=== PATIENT | female | born 1975 | race Caucasian/White ===

== ENCOUNTER → 2016-06-20 | Outpatient (CLI) | payer OTHER ==
[~2016-06-20] MED LIST: AMX500CIP PO; CETI10TA17 PO; CITA10TA70 PO; FLT05NA16 NS; HYDR-3816 PO; METR500T PO; NAPR-243 PO; OMEP-10 PO; ONDA4TAB11 PO; PANT40TA PO; PRD20T PO; PROM12.59 PO; SCR1T1 PO
--- OUTSIDE RECORDS SUMMARY | 2016-06-20 11:15 | XMS REPORT | Continuity of Care Document ---
Author Author [facility] Organization [facility] Address Unknown Phone Unavailable Care Team Providers Care Log Processor Operator Name Role Phone NO, LOCAL PHYSICIAN PCP Unavailable Insurance Providers Payer Name Policy Number Subscriber Name Relationship [facility] [id number] Micaela Walker 18 Self / Same As Patient Advance Directives Directive Response Recorded Date/Time Advance Directives No 09/20/14 9:48am Resuscitation Status Full Code 09/20/14 9:48am Problems Medical Problems Problem Onset Date Status Epigastric abdominal pain Unknown Active Medications Medication Dose Route Sig Days/Qty Instructions Order Date Discontinued Date Status Cetirizine HCl (Zyrtec) 10 Mg PO DAILY 11/27/13 09/20/14 Discontinued Fluticasone Propionate 1 [place] NS DIRECTED 1 Qty 11/27/13 09/20/14 Discontinued Citalopram Hydrobromide 1 Each PO DAILY 11/27/13 09/20/14 Discontinued Prednisone 20 Mg PO TWICE A DAY 10 Qty 11/27/13 09/20/14 Discontinued Naproxen 1 Each PO TWICE A DAY PRN PAIN 20 Qty FOR PAIN 11/27/13 Discontinued Promethazine Hcl 12.5 Mg PO EVERY 6 HOURS PRN NAUSEA 09/20/14 Active Omeprazole 20 Mg PO DAILY 09/20/14 Active Metronidazole 1 Each PO T 09/20/14 Active Amoxicillin 1,000 Mg PO TWICE A DAY 09/20/14 Active Hydrocodone Bit/Acetaminophen 1 Tab PO EVERY 6 HOURS PRN PAIN 10 Qty Active Ondansetron 4 Mg PO EVERY 6 HOURS PRN NAUSEA/VOMITING 10 Qty 09/20/14 Active Sucralfate 1 Gm PO BEFORE MEALS AND AT BEDTIME 60 Qty 09/20/14 Active Social History Social History Problem Response Recorded Date/Time Alcohol Use Denies Use 09/20/2014 9:48am Recreational Drug Use No 09/20/2014 9:48am Recent Foreign Travel No 09/20/2014 9:35am Recent Infectious Disease Exposure No 09/20/2014 9:35am Smoking Status Never a Smoker 09/20/2014 9:48am Query Response Start Date Stop Date Smoking Status Never a Smoker Hospital Discharge Instructions No hospital discharge instructions. Plan of Care No plan of care. Functional Status No functional status results. Allergies, Adverse Reactions, Alerts Allergen Type Severity Reaction Status Last Updated No Known Drug Allergies Active 11/27/13 Immunizations No immunization records. Vital Signs Acute Vital Signs Vital Response Date/Time Temperature (Fahrenheit) 97.6 degrees F (97.6 - 99.5) Temperature (Calculated Celsius) 36.06874 degrees C (36.4 - 37.5) Temperature Source Temporal Pulse Rate (adult) 100 bpm (60 - 90) O2 Sat by Pulse Oximetry 97 % (88 - 100) Blood Pressure 141/86 mm Hg Pain Pain Intensity 8 Pain Pain Intensity 8 Height (Feet) 5 feet Height (Inches) 8 inches Height (Calculated Centimeters) 172.981554 cm Weight (Pounds) 202 pounds Weight (Calculated Kilograms) 91.890536 kilograms Calculated BMI 30.71 Results Laboratory Results Test Name Result Units Flags Reference Collection Date/Time Result Date/ Time Comments White Blood Count 9.3 10^3/uL 4.3-11.0 09/20/2014 10:05am 09/20/2014 10 :19am Red Blood Count 5.50 10^6/uL 4.35-5.85 09/20/2014 10:05am 09/20/2014 10 :19am Hemoglobin 15.4 G/DL 11.5-16.0 09/20/2014 10:05am 09/20/2014 10:19am Hematocrit 44 % 35-52 09/20/2014 10:05am 09/20/2014 10:19am Mean Corpuscular Volume 81 FL 80-99 09/20/2014 10:05am 09/20/2014 10: 19am Mean Corpuscular Hemoglobin 28 PG 25-34 09/20/2014 10:05am 09/20/2014 10:19am Mean Corpuscular Hemoglobin Concent 35 G/DL 32-36 09/20/2014 10:05am 10:19am Red Cell Distribution Width 13.0 % 10.0-14.5 09/20/2014 10:05am 2014 10:19am Platelet Count 338 10^3/uL 130-400 09/20/2014 10:05am 09/20/2014 10: 19am Mean Platelet Volume 9.8 FL 7.4-10.4 09/20/2014 10:05am 09/20/2014 10: 19am Neutrophils (%) (Auto) 62 % 42-75 09/20/2014 10:05am 09/20/2014 10: 19am Lymphocytes (%) (Auto) 26 % 12-44 09/20/2014 10:05am 09/20/2014 10: 19am Monocytes (%) (Auto) 6 % 0-12 09/20/2014 10:05am 09/20/2014 10:19am Eosinophils (%) (Auto) 7 % 0-10 09/20/2014 10:05am 09/20/2014 10:19am Basophils (%) (Auto) 0 % 0-10 09/20/2014 10:05am 09/20/2014 10:19am Neutrophils # (Auto) 5.7 X 10^3 1.8-7.8 09/20/2014 10:05am 09/20/2014 10:19am Lymphocytes # (Auto) 2.4 X 10^3 1.0-4.0 09/20/2014 10:05am 09/20/2014 10:19am Monocytes # (Auto) 0.6 X 10^3 0.0-1.0 09/20/2014 10:05am 09/20/2014 10: 19am Eosinophils # (Auto) 0.6 10^3/uL H 0.0-0.3 09/20/2014 10:05am 09/20/2014 10:19am Basophils # (Auto) 0.0 10^3/uL 0.0-0.1 09/20/2014 10:05am 09/20/2014 10 :19am Urine Color YELLOW 09/20/2014 9:55am 09/20/2014 10:17am Urine Clarity CLEAR 09/20/2014 9:55am 09/20/2014 10:17am Urine pH 6 5-9 09/20/2014 9:55am 09/20/2014 10:17am Urine Specific [place] 1.010 * 1.016-1.022 09/20/2014 9:55am 2014 10:17am Urine Protein NEGATIVE NEGATIVE 09/20/2014 9:55am 09/20/2014 10:17am Urine Glucose (UA) NEGATIVE NEGATIVE 09/20/2014 9:55am 09/20/2014 10: 17am Urine RBC (Auto) NEGATIVE NEGATIVE 09/20/2014 9:55am 09/20/2014 10: 17am Urine Ketones NEGATIVE NEGATIVE 09/20/2014 9:55am 09/20/2014 10:17am Urine Nitrite NEGATIVE NEGATIVE 09/20/2014 9:55am 09/20/2014 10:17am Urine Bilirubin NEGATIVE NEGATIVE 09/20/2014 9:55am 09/20/2014 10: 17am Urine Urobilinogen NORMAL MG/DL NORMAL 09/20/2014 9:55am 09/20/2014 10: 17am Urine Leukocyte Esterase 1+ * NEGATIVE 09/20/2014 9:55am 09/20/2014 10: 17am Urine RBC NONE /HPF 09/20/2014 9:55am 09/20/2014 10:17am Urine WBC NONE /HPF 09/20/2014 9:55am 09/20/2014 10:17am Urine Bacteria NEGATIVE /HPF 09/20/2014 9:55am 09/20/2014 10:17am Urine Squamous Epithelial Cells NONE /HPF 09/20/2014 9:55am 2014 10:17am Urine Crystals NONE /LPF 09/20/2014 9:55am 09/20/2014 10:17am Urine Casts NONE /LPF 09/20/2014 9:55am 09/20/2014 10:17am Urine Mucus NEGATIVE /LPF 09/20/2014 9:55am 09/20/2014 10:17am Urine Culture Indicated NO 09/20/2014 9:55am 09/20/2014 10:17am Sodium Level 140 MMOL/L 135-145 09/20/2014 10:45am 09/20/2014 11:09am Potassium Level 3.6 MMOL/L 3.6-5.0 09/20/2014 10:4509/20/2014 11: 09am Chloride Level 110 MMOL/L H 98-107 09/20/2014 10:4509/20/2014 11:09am Carbon Dioxide Level 20 MMOL/L L 21-32 09/20/2014 10:4509/20/2014 11: 09am Blood Urea Nitrogen 10 MG/DL 7-18 09/20/2014 10:4509/20/2014 11: 09am Creatinine 0.72 MG/DL 0.60-1.30 09/20/2014 10:4509/20/2014 11:09am BUN/Creatinine Ratio 14 09/20/2014 10:4509/20/2014 11:09am Estimat Glomerular Filtration Rate > 60 09/20/2014 10:452014 11:09am GFR INTERPRETIVE DATA UNITS FOR ESTIMATED GFR (eGFR): mL/min/1.73 M2 REFERENCE RANGE FOR ESTIMATED GFR (eGFR) eGFR NORMAL eGFR >60 MODERATELY DECREASED eGFR 30-59 SEVERLY DECREASED eGFR 15-29 KIDNEY FAILURE <15 (OR DIALYSIS) Glucose Level 87 MG/DL 70-105 09/20/2014 10:4509/20/2014 11:09am Calcium Level 8.3 MG/DL L 8.5-10.1 09/20/2014 10:4509/20/2014 11:09am Magnesium Level 1.5 MG/DL L 1.8-2.4 09/20/2014 10:4509/20/2014 11: 09am Total Bilirubin 0.3 MG/DL 0.1-1.0 09/20/2014 10:4509/20/2014 11: 09am Alkaline Phosphatase 96 U/L 40-136 09/20/2014 10:4509/20/2014 11: 09am Aspartate Amino Transf (AST/SGOT) 24 U/L 5-34 09/20/2014 10:452014 11:09am Alanine Aminotransferase (ALT/SGPT) 29 U/L 0-55 09/20/2014 10:45 11:09am Total Protein 6.1 G/DL L 6.4-8.2 09/20/2014 10:4509/20/2014 11:09am Albumin 3.5 G/DL 3.2-4.5 09/20/2014 10:45am 09/20/2014 11:09am Amylase Level 54 U/L 25-125 09/20/2014 10:45am 09/20/2014 11:09am Lipase 25 U/L 8-78 09/20/2014 10:45am 09/20/2014 11:09am Procedures No known history of procedures. Encounters Encounter Location Date/Time Departed Emergency Room [facility] 09/20/14 9:30am Recent Diagnosis
--- NOTE | 2016-06-21 11:58 | Diagnostic Imaging Report ---
Thyroid scan and uptake Technique: After the oral administration of 196 ?Ci of I-123 capsule, 4 hour and 24-hour uptake is measured and plantar images over the thyroid gland obtained. Indication: Multinodular goiter FINDINGS: Thyroid uptake at 4 hours is 19.6 %, and the at 24 hours is 42.5 %. Planar images demonstrate no evidence of a cold nodule. IMPRESSION: Mild hyperparathyroidism. Dictated by: Dictated on workstation # [id number]
== END ==
LOC: CARD 11:11
PROVIDERS: ATTEND Otolaryngology Otolaryngology/Facial Plastic Surgery
DX: E04.2 Nontoxic multinodular goiter (principal)
CPT/HCPCS: 78014

== ENCOUNTER → 2016-10-15 | Outpatient (CLI) | payer OTHER ==
[2016-10-15 16:15] LABS: THYROID STIMULATING HORMONE 0.69 UIU/ML (0.35-4.94)
--- NOTE | 2016-10-15 17:42 | Diagnostic Imaging Report ---
CLINICAL INDICATION: Patient with multinodular goiter. COMPARISONS: Thyroid ultrasound dated 06/04/2016. FINDINGS: THYROID NODULES: There are multiple thyroid nodules seen throughout both thyroid glands. The largest nodule on the left measures 1.6 cm x 1.4 cm x 1.6 cm and is hypoechoic. This nodular area previously measured 1.4 cm x 1.4 cm x 1.3 cm. There is interval decreased size of the heterogeneous nodule in the upper pole of the left thyroid gland, which currently measures 1.2 cm x 0.9 cm x 1.3 cm compared to the prior study measured at 1.8 cm x 1.4 cm x 1.1 cm. There is no significant change to the 1.7 cm nodule in the mid left thyroid gland, which is isoechoic and slightly heterogeneous. The multiple right thyroid nodules have not significantly changed in size with the largest measuring 10 mm in the inferior pole and is heterogeneous hypoechoic. They show a calcified nodule measuring 8 mm in the upper right thyroid gland. These nodules demonstrate no significant Doppler flow. THYROID GLAND: Besides the thyroid nodules, the thyroid gland has normal echogenicity. The right lobe measures 5.1 cm x 1.6 cm x 1.7 cm and the left lobe measures 5.2 cm x 1.8 cm x 2.2 cm in their three dimensions. IMPRESSION: 1: There is interval slight increased size of nodule in the inferior left thyroid gland by roughly 2 mm. 2: There is interval slight decreased size of the nodule in the upper pole of the left thyroid gland. 3: The remainder of the multinodular thyroid goiter has not significantly changed. Dictated by: Dictated on workstation # [id number]
== END ==
LOC: RAD 15:13
PROVIDERS: ATTEND Otolaryngology Otolaryngology/Facial Plastic Surgery
DX: E04.2 Nontoxic multinodular goiter (principal)
CPT/HCPCS: 36415; 76536; 84439; 84443

== ENCOUNTER → 2017-12-22 | Outpatient (CLI) | payer OTHER ==
--- NOTE | 2017-12-22 11:29 | Diagnostic Imaging Report ---
Indication: Pain. Comparison made with prior examination of 02/24/2016. Findings: Heart size normal. Lungs are clear. No pleural effusion or pneumothorax. There is an old left sixth posterior lateral rib fracture. There are no acute rib fractures. Bowel gas pattern is nonspecific. Surgical clips in the right upper quadrant. Impression: No acute cardiopulmonary abnormality. No acute rib fractures. Dictated by: Dictated on workstation # [id number]
== END ==
LOC: RAD 10:37
PROVIDERS: ATTEND Nurse Practitioner Family
DX: R07.81 Pleurodynia (principal); N94.10 Unspecified dyspareunia
CPT/HCPCS: 71101

== ENCOUNTER → 2019-01-01 | Outpatient (CLI) | payer OTHER ==
--- NOTE | 2019-01-01 20:23 | Diagnostic Imaging Report ---
INDICATION: Palpable abnormality. The current study was also evaluated with a Computer Aided Detection (CAD) system. 3-D Tomographic imaging was also performed. Comparison made with prior examination from 08/17/2015. FINDINGS: There are scattered fibroglandular densities bilaterally. There is no dominant mass, spiculated lesion, or suspicious calcification identified. The skin, nipples, and axillae are unremarkable. Ultrasound of the axillary region of left breast was also performed which was negative. IMPRESSION: Negative. ACR BI-RADS Category 1: Negative. Result letter will be mailed to the patient. Note: At least 10% of breast cancer is not imaged by mammography. Dictated by: Dictated on workstation # [id number]
--- NOTE | 2019-01-01 20:25 | Diagnostic Imaging Report ---
INDICATION: Palpable abnormality in the left breast. TECHNIQUE: Targeted ultrasound of the left axillary region was performed. FINDINGS: There is no evidence of discrete solid or cystic mass in the axillary region of the left breast. Fibroglandular tissues are unremarkable. IMPRESSION: Negative left breast ultrasound. ACR BI-RADS Category 1: Negative. Dictated by: Dictated on workstation # [id number]
== END ==
LOC: RAD 08:23
PROVIDERS: ATTEND Nurse Practitioner
DX: R92.8 Other abnormal and inconclusive findings on diagnostic imaging of breast (principal)
CPT/HCPCS: 76642; 77066

== ENCOUNTER 2019-01-14 07:03 | Emergency (ER) | payer OTHER ==
[~2019-01-14] VITALS: Ht 175.3 cm; Wt 90.7 kg
--- OUTSIDE RECORDS SUMMARY | 2019-01-14 07:09 | XMS REPORT ---
Author Author Migration, Doctor Organization [facility] Address Unknown Phone Unavailable Care Team Providers Care Card Seller Name Role Phone Migration, Doctor Unavailable Unavailable PROBLEMS Type Condition ICD9-CM Code [id number] Code Onset Dates Condition Status SNOMED Code Problem Cough 786.2 Active 58565149 Problem Acute pharyngitis 462 Active 110838156 Problem Chest pain, unspecified 786.50 Active 55342169 ALLERGIES No Information ENCOUNTERS Encounter Location Date Diagnosis [facility] [id number] [place] [id number] Aug, Fibrocystic breast, right N60.11 ; Fibrocystic breast, left N60.12 ; Dense breast tissue R92.2 and Breast tenderness N64.4 [facility] [id number] [place] [phone] Jul, Mastitis N61 [facility] [id number] [place] [phone] Sep, [facility] [id number] [place] [phone] Sep, [facility] [id number] [place] [phone] May, [facility] [id number] [place] [phone] May, [facility] [id number] [place] [phone] Nov, [facility] [id number] [place] [id number] Nov, [facility] [id number] [place] [phone] Nov, [facility] [id number] [place] [address] Nov, [facility] [address] [facility] [id number] [place] [address] May, [facility] [address] [facility] [facility] [id number] [address] May, [facility] [address] [facility] [facility] [id number] [address] Apr, [facility] [address] [facility] [address] [facility] [id number] [address] Aug, IMMUNIZATIONS No Known Immunizations SOCIAL HISTORY Never Assessed REASON FOR VISIT [facility] [place] C[place] VITAL SIGNS MEDICATIONS Medication Instructions Dosage Frequency Start Date End Date Duration Status Hydrocodone-Acetaminophen 5-325 mg take 1 tablet by Oral route every 4 hours as needed for pain PRN pain Nov, Active Azithromycin 250 mg 2 Tablet by Oral route on day 1 then take 1 daily for 4 days May, Active citalopram by oral route May, Active Tessalon Perles 100 mg 1 capsule by Oral route 3 times per day PRN May, Active Meloxicam by oral route May, Active Probiotic Formula 10 billion cell (2 billion ea) 1 Tablet by Po route 2 times per day probiotic May, Active RESULTS No Results PROCEDURES No Known procedures INSTRUCTIONS MEDICATIONS ADMINISTERED No Known Medications MEDICAL (GENERAL) HISTORY Type Description Date Surgical History cholecystectomy Surgical History hysterectomy d/t endometriosis 2004 Surgical History section, tubal ligation Surgical History screws placed in left knee
--- OUTSIDE RECORDS SUMMARY | 2019-01-14 07:09 | XMS REPORT ---
Author Author Migration, Doctor Organization [facility] Address Unknown Phone Unavailable Care Team Providers Care Account Support Associate Name Role Phone Migration, Doctor Unavailable Unavailable PROBLEMS Type Condition ICD9-CM Code [id number] Code Onset Dates Condition Status SNOMED Code Problem Cough 786.2 Active 85371812 Problem Acute pharyngitis 462 Active 284309610 Problem Chest pain, unspecified 786.50 Active 91139516 ALLERGIES No Information ENCOUNTERS Encounter Location Date Diagnosis [facility] [id number] [place] [phone] Aug, Fibrocystic breast, right N60.11 ; Fibrocystic breast, left N60.12 ; Dense breast tissue R92.2 and Breast tenderness N64.4 [facility] [id number] [place] [phone] Jul, Mastitis N61 [facility] [id number] [place] [phone] Sep, [facility] [id number] [place] [phone] Sep, [facility] [id number] [place] [phone] May, [facility] [id number] [place] [phone] May, [facility] [id number] [place] [phone] Nov, [facility] [id number] [place] [phone] Nov, [facility] [id number] [place] [phone] Nov, [facility] [id number] [place] [address] Nov, [facility] [address] [facility] [id number] [address] May, [facility] [address] [id number] [address] May, [facility] [address] [facility] [id number] [address] Apr, [facility] [address] [facility] [id number] [address] Aug, IMMUNIZATIONS No Known Immunizations SOCIAL HISTORY Never Assessed REASON FOR VISIT [facility] [place] OF CARE VITAL SIGNS MEDICATIONS No Known Medications RESULTS No Results PROCEDURES No Known procedures INSTRUCTIONS MEDICATIONS ADMINISTERED No Known Medications MEDICAL (GENERAL) HISTORY Type Description Date Surgical History cholecystectomy Surgical History hysterectomy d/t endometriosis 2004 Surgical History section, tubal ligation Surgical History screws placed in left knee
--- OUTSIDE RECORDS SUMMARY | 2019-01-14 07:10 | XMS REPORT | Continuity of Care Document ---
Author Organization Unknown Address Unknown Phone Unavailable Allergies Active Description Code Type Severity Reaction Onset Reported/Identified Relationship to Patient Clinical Status Yes No Known Drug Allergies [id number] Drug Allergy Unknown N/A 11/27/2013 Medications There is no data. Problems Date Dx Coded Attending Type Code Diagnosis Diagnosed By 08/16/2009 ROBBIN MOORE MD 386.10 VERTIGO, PERIPHERAL UNSPECIFIED 08/16/2009 BALTAZAR FORBES APRN 386.10 VERTIGO, PERIPHERAL UNSPECIFIED 04/11/2010 ROBBIN MOORE MD 780.2 SYNCOPE AND COLLAPSE 04/11/2010 BALTAZAR FORBES APRN 780.2 SYNCOPE AND COLLAPSE 05/11/2011 ROBBIN MOORE MD 465.9 UPPER RESPIRATORY INFECTION 05/11/2011 BALTAZAR FORBES APRN 465.9 UPPER RESPIRATORY INFECTION 11/27/2013 BETTIE STUART MD Ot 786.50 CHEST PAIN NOS 11/27/2013 BETTIE STUART MD Ot 786.52 PAINFUL RESPIRATION 11/30/2013 ROBBIN MOORE MD N 786.50 CHEST PAIN 11/30/2013 BALTAZAR FORBES APRN 786.50 CHEST PAIN 05/25/2014 BALTAZAR FORBES APRN R 462 ACUTE PHARYNGITIS 05/25/2014 BALTAZAR FORBES APRN R 786.2 COUGH 09/20/2014 MILLIE LEE, ANDREW Ng Ot 789.06 ABDOMINAL PAIN, EPIGASTRIC 10/19/2014 ALEJANDRO SEVILLA MD Ot 530.11 REFLUX ESOPHAGITIS 10/19/2014 ALEJANDRO SEVILLA MD Ot 535.50 UNSP GASTRITIS GASTRODUODENITIS W/O ME 10/19/2014 ALEJANDRO SEVILLA MD Ot 535.60 DUODENITIS, WITHOUT MENTION OF HEMORRHAG 10/19/2014 ALEJANDRO SEVILLA MD Ot 553.3 DIAPHRAGMATIC HERNIA 10/19/2014 ALEJANDRO SEVILLA MD Ot V15.82 HISTORY OF TOBACCO USE 05/08/2015 ALEJANDRO SEVILLA MD, Ot V72.84 05/09/2015 ROEL LEE, ALEJANDRO Ot V72.84 08/21/2015 REJI MACKENZIE DATA REDUCTION TECHNICIAN Ot N60.11 08/21/2015 REJI MACKENZIE A DATA REDUCTION TECHNICIAN Ot N60.12 08/21/2015 REJI MACKENZIE A DATA REDUCTION TECHNICIAN Ot N64.4 08/21/2015 REJI MACKENZIE A DATA REDUCTION TECHNICIAN Ot R92.2 09/04/2015 REJI MACKENZIE A DATA REDUCTION TECHNICIAN Ot N60.11 09/04/2015 REJI MACKENZIE A DATA REDUCTION TECHNICIAN Ot N60.12 09/04/2015 REJI MACKENZIE A DATA REDUCTION TECHNICIAN Ot N64.4 09/04/2015 REJI MACKENZIE DATA REDUCTION TECHNICIAN Ot R92.2 11/23/2015 ROEL LEE, ALEJANDRO Ot V72.84 EXAM PRE-OPERATIVE NOS 01/29/2016 ROEL LEE, ALEJANDRO Ot V72.84 EXAM PRE-OPERATIVE NOS 02/19/2016 ALEJANDRO SEVILLA MD Ot V72.84 EXAM PRE-OPERATIVE NOS 02/25/2016 ANDREW PINTO MD Ot R00.2 PALPITATIONS 02/25/2016 ANDREW PINTO MD Ot R07.9 CHEST PAIN, UNSPECIFIED 02/25/2016 ANDREW PINTO MD Ot R68.84 JAW PAIN 02/25/2016 REJI MACKENZIE A DATA REDUCTION TECHNICIAN Ot 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 02/25/2016 REJI MACKENZIE DATA REDUCTION TECHNICIAN Ot N60.12 DIFFUSE CYSTIC MASTOPATHY OF LEFT BREAST 02/25/2016 REJI MACKENZIE DATA REDUCTION TECHNICIAN Ot N64.4 MASTODYNIA 02/25/2016 REJI MACKENZIE DATA REDUCTION TECHNICIAN Ot R92.2 INCONCLUSIVE MAMMOGRAM 02/26/2016 ANDREW PINTO MD Ot R00.2 PALPITATIONS 02/26/2016 ANDREW PINTO MD Ot R07.9 CHEST PAIN, UNSPECIFIED 02/26/2016 ANDREW PINTO MD Ot R68.84 JAW PAIN 03/01/2016 ANDREW PINTO MD Ot R00.2 PALPITATIONS 03/01/2016 MILLIE LEE, ANDREW Ng Ot R07.9 CHEST PAIN, UNSPECIFIED 03/01/2016 MILLIE LEE, ANDREW Ng Ot R68.84 JAW PAIN 03/06/2016 SUSI MOLINA Ot E04.9 NONTOXIC GOITER, UNSPECIFIED 03/20/2016 SUSI MOLINA Ot E04.9 NONTOXIC GOITER, UNSPECIFIED 06/05/2016 LUAN LEE, CORINA P Ot E04.2 NONTOXIC MULTINODULAR GOITER 06/18/2016 Ot 785.1 PALPITATIONS 06/18/2016 Ot 796.2 ELEV BL PRES W/O HYPERTN 06/19/2016 LUAN LEE, CORINA P Ot E04.2 NONTOXIC MULTINODULAR GOITER 06/21/2016 LUAN LEE, CORINA P Ot E04.2 NONTOXIC MULTINODULAR GOITER 07/02/2016 LUAN LEE, CORINA P Ot E04.2 NONTOXIC MULTINODULAR GOITER 10/16/2016 LUAN LEE, CORINA P Ot E04.2 NONTOXIC MULTINODULAR GOITER 10/16/2016 LUAN LEE, CORINA P Ot E04.2 NONTOXIC MULTINODULAR GOITER 10/24/2016 LUAN LEE, CORINA P Ot E04.2 NONTOXIC MULTINODULAR GOITER 10/24/2016 LUAN LEE, CORINA P Ot E21.3 HYPERPARATHYROIDISM, UNSPECIFIED 10/28/2016 LUAN LEE, CORINA P Ot E04.2 NONTOXIC MULTINODULAR GOITER 12/23/2017 JESÚSTATIANA DALE L DATA REDUCTION TECHNICIAN Ot N94.10 UNSPECIFIED DYSPAREUNIA 12/23/2017 JESÚS, TATIANA L DATA REDUCTION TECHNICIAN Ot R07.81 PLEURODYNIA 01/02/2018 JESÚS, TATIANA L DATA REDUCTION TECHNICIAN Ot N94.10 UNSPECIFIED DYSPAREUNIA 01/02/2018 JESÚS, TATIANA L DATA REDUCTION TECHNICIAN Ot R07.81 PLEURODYNIA 01/05/2019 SCOTT BARRAZA DATA REDUCTION TECHNICIAN Ot R92.8 OTH ABN AND INCONCLUSIVE FINDINGS ON DX Procedures Code Description Performed By Performed On J1885 TORADOL PER 15 MG, INJ KETOROLAC TROMETHAMINE 11/30/2013 Results Test Result Range Complete blood count (CBC) with automated white blood cell (WBC) differential - 02/24/16 23:10 Blood leukocytes automated count (number/volume) 12.6 10*3/uL 4.3-11.0 Blood erythrocytes automated count (number/volume) 5.58 10*6/uL 4.35-5.85 Venous blood hemoglobin measurement (mass/volume) 15.4 g/dL 11.5-16.0 Blood hematocrit (volume fraction) 44 % 35-52 Automated erythrocyte mean corpuscular volume 79 [foz_us] 80-99 Automated erythrocyte mean corpuscular hemoglobin (mass per erythrocyte) 28 pg 25-34 Automated erythrocyte mean corpuscular hemoglobin concentration measurement (mass/volume) 35 g/dL 32-36 Automated erythrocyte distribution width ratio 13.2 % 10.0- 14.5 Automated blood platelet count (count/volume) 410 10*3/uL 130-400 Automated blood platelet mean volume measurement 9.6 [foz_us] 7.4-10.4 Automated blood neutrophils/100 leukocytes 54 % 42-75 Automated blood lymphocytes/100 leukocytes 37 % 12-44 Blood monocytes/100 leukocytes 7 % 0-12 Automated blood eosinophils/100 leukocytes 1 % 0-10 Automated blood basophils/100 leukocytes 0 % 0-10 Blood neutrophils automated count (number/volume) 6.9 10*3 1.8-7.8 Blood lymphocytes automated count (number/volume) 4.7 10*3 1.0-4.0 Blood monocytes automated count (number/volume) 0.9 10*3 0.0- 1.0 Automated eosinophil count 0.2 10*3/uL 0.0-0.3 Automated blood basophil count (count/volume) 0.0 10*3/uL 0.0-0.1 PT panel in platelet poor plasma by coagulation assay - 02/24/16 23:10 Prothrombin time (PT) in platelet poor plasma by coagulation assay 11.1 s 12.2-14.7 INR in platelet poor plasma or blood by coagulation assay 0.8 0.8-1.4 Activated partial thromboplastin time (aPTT) in platelet poor plasma bycoagulation assay - 02/24/16 23:10 Activated partial thromboplastin time (aPTT) in platelet poor plasma bycoagulation assay 31 s 24-35 Fibrin D-dimer FEU measurement in platelet poor plasma (mass/volume) - 02/24/16 23:10 Fibrin D-dimer FEU measurement in platelet poor plasma (mass/volume) 0.97 ug/mL 0.00-0.49 Comprehensive metabolic panel - 02/24/16 23:10 Serum or plasma sodium measurement (moles/volume) 138 mmol/L 135-145 Serum or plasma potassium measurement (moles/volume) 3.5 mmol/L 3.6-5.0 Serum or plasma chloride measurement (moles/volume) 104 mmol/L 98-107 Carbon dioxide 19 mmol/L 21-32 Serum or plasma anion gap determination (moles/volume) 15 mmol/L 5-14 Serum or plasma urea nitrogen measurement (mass/volume) 16 mg/dL 7-18 Serum or plasma creatinine measurement (mass/volume) 1.14 mg/dL 0.60-1.30 Serum or plasma urea nitrogen/creatinine mass ratio 14 NRG Serum or plasma creatinine measurement with calculation of estimated glomerular filtration rate 53 NRG Serum or plasma glucose measurement (mass/volume) 123 mg/dL 70-105 Serum or plasma calcium measurement (mass/volume) 9.8 mg/dL 8.5-10.1 Serum or plasma total bilirubin measurement (mass/volume) 0.4 mg/dL 0.1-1.0 Serum or plasma alkaline phosphatase measurement (enzymatic activity/volume) 109 U/L 40-136 Serum or plasma aspartate aminotransferase measurement (enzymatic activity/volume) 24 U/L 5-34 Serum or plasma alanine aminotransferase measurement (enzymatic activity/volume) 38 U/L 0-55 Serum or plasma protein measurement (mass/volume) 7.0 g/dL 6.4-8.2 Serum or plasma albumin measurement (mass/volume) 4.3 g/dL 3.2-4.5 Magnesium - 02/24/16 23:10 Magnesium 2.0 mg/dL 1.8-2.4 Serum or plasma troponin i.cardiac measurement (mass/volume) - 02/24/16 23:10 Serum or plasma troponin i.cardiac measurement (mass/volume) < ng/mL <0.30 Myoglobin, serum - 02/24/16 23:10 Myoglobin, serum 43.5 ng/mL 10.0-92.0 THYROID STIMULATING HORMONE - 02/24/16 23:10 THYROID STIMULATING HORMONE 2.18 u[iU]/mL 0.35-4.94 Serum or plasma troponin i.cardiac measurement (mass/volume) - 02/25/16 01:10 Serum or plasma troponin i.cardiac measurement (mass/volume) < ng/mL <0.30 THYROID STIMULATING HORMONE - 10/15/16 15:32 THYROID STIMULATING HORMONE 0.69 u[iU]/mL 0.35-4.94 Serum or plasma thyroxine (T4) free measurement (mass/volume) - 10/15/16 15:32 Serum or plasma thyroxine (T4) free measurement (mass/volume) 1.01 ng/dL 0.70-1.48 Encounters ACCT No. Visit Date/Time Discharge Status Pt. Type Provider Facility Loc./Unit Complaint [id number] 05/25/2014 15:39:00 05/25/2014 23:59:59 CLS Outpatient BALTAZAR FORBES APRN [id number] 11/30/2013 11:05:00 11/30/2013 23:59:59 CLS Outpatient ROBBIN MOORE MD [id number] 01/01/2019 11:13:00 01/01/2019 23:59:59 CLS Preadmit NWSCOTT SESAY DATA REDUCTION TECHNICIAN [facility] RAD LT BREAST LUMP [id number] 01/01/2019 08:23:00 01/01/2019 23:59:59 CLS Outpatient SCOTT BARRAZA DATA REDUCTION TECHNICIAN [facility] RAD SCREENING [id number] 12/22/2017 10:37:00 12/22/2017 23:59:59 CLS Outpatient TATIANA ESPINOSA DATA REDUCTION TECHNICIAN [facility] RAD LEFT POSTERIOR RIB PAIN RADIATING INFERIOR TO LEFT [id number] 10/15/2016 15:13:00 10/15/2016 23:59:59 CLS Outpatient CORINA ROLAND MD [facility] RAD MULTINODULEAR GOITER [id number] 06/20/2016 11:11:00 06/20/2016 23:59:59 CLS Outpatient CORINA ROLAND MD [facility] CARD MULITNODULAR GOITER [id number] 06/04/2016 10:53:00 06/04/2016 23:59:59 CLS Outpatient CORINA ROLAND MD [facility] RAD THYROID NODULES [id number] 03/05/2016 10:59:00 03/05/2016 23:59:59 CLS Outpatient TALI DU, SUSI Arredondo [facility] RAD ENLARGED THYROID [id number] 02/24/2016 22:59:00 02/25/2016 02:15:00 DIS Emergency ANDREW PINTO MD [facility] ER NECK, JAW, CHEST [id number] 08/17/2015 07:47:00 08/17/2015 23:59:59 CLS Outpatient REJI MACKENZIE APRN [facility] RAD BREAST TENDERNESS [id number] 10/19/2014 07:33:00 10/19/2014 10:40:00 DIS Outpatient ALEJANDRO SEVILLA MD [facility] SDC ABDOMINAL PAIN [id number] 10/14/2014 05:49:00 10/14/2014 23:59:59 CLS Outpatient ALEJANDRO SEVILLA MD [facility] PREOP ABDOMINAL PAIN [id number] 09/20/2014 09:30:00 09/20/2014 12:25:00 DIS Emergency ADNREW PINTO MD [facility] ER ABD PAIN [id number] 11/27/2013 17:29:00 11/27/2013 19:00:00 DIS Emergency BETTIE STUART MD [facility] ER L SIDE CHEST PAIN [id number] 12/18/2011 16:22:00 Document Registration
--- NOTE | 2019-01-14 07:24 | ED Fall/Injury ---
General Stated Complaint: FALL;LOWER BACK PAIN Source: patient, family Exam Limitations: no limitations History of Present Illness Date Seen by Provider: Jan 14, 2019 Time Seen by Provider: 07:21 Initial Comments This 43-year-old white female presents after he fell down several steps yesterday sustaining a contusion to her occiput and to her coccygeal area. Patient was dazed when she fell and struck her head yesterday but had no loss of consciousness and has had no subsequent neurologic complaints. The patient denies associated neck pain. She denies trauma to the remainder of her back other than the coccygeal area. The patient has sharp pain in the coccygeal area which is made worse with palpation. Patient denies trauma to the chest abdomen or anterior pelvis. She denies significant injury to the extremities. Patient's primary complaint is of sharp severe pain to the coccygeal area. She denies associated appears seizures or weakness in the lower extremities. She has had no bowel or bladder dysfunction. Allergies and Home Medications Allergies Coded Allergies: No Known Drug Allergies (Unverified , 11/27/13) Home Medications No Active Prescriptions or Reported Meds Patient Home Medication List Home Medication List Reviewed: Yes Review of Systems Review of Systems Constitutional: no symptoms reported Eyes: No Symptoms Reported Ears, Nose, Mouth, Throat: no symptoms reported Respiratory: no symptoms reported Cardiovascular: no symptoms reported Gastrointestinal: no symptoms reported Genitourinary: no symptoms reported Musculoskeletal: see HPI, back pain Skin: no symptoms reported Psychiatric/Neurological: No Symptoms Reported Past Wbpymmc-Sstvyg-Hloviz Hx Past Med/Social Hx: Reviewed Nursing Past Med/Soc Hx Patient Social History Type Used: Cigarettes Recent Hopitalizations: No Past Medical History Section, Gallbladder, Hysterectomy, Orthopedic Asthma COOK TACO History: Hysterectomy, 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 Chronic Constipation, Ulcer, Gall Bladder Disease Fractures Depression Family Medical History No Pertinent Family Hx Physical Exam Vital Signs Vital Signs - First Documented 01/14/19 07:31 Temp 98.0 Pulse 88 Resp 18 B/P (MAP) 124/91 (102) Pulse Ox 100 O2 Delivery Room Air Capillary Refill : Height, Weight, BMI Height: 5'8.00" Weight: 220lbs. oz. 99.707216ar; 30.71 BMI Method:Stated General Appearance: WD/WN, mild distress HEENT: normal ENT inspection Neck: non-tender, full range of motion, supple Cardiovascular: regular rate, rhythm Respiratory: chest non-tender, lungs clear Gastrointestinal: normal bowel sounds, non tender, soft Back: normal inspection, no CVA tenderness Extremities: normal range of motion, non-tender, normal inspection Neurologic/Psychiatric: no motor/sensory deficits, alert, normal mood/affect Skin: normal color, warm/dry Hannah Coma Score Best Eye Response: (4) Open Spontaneously Best Verbal Response: (5) Oriented Best Motor Response: (6) Obeys Commands [place] Total: 15 Progress/Results/Core Measures Results/Orders My Orders Orders - ROBERTA MULLINS MD Fentanyl Injection (Sublimaze Injection (01/14/19 07:30) Iv Heplock-Insert (Order) (01/14/19 07:18) Ct Pelvis Wo (01/14/19 07:18) Fentanyl Injection (Sublimaze Injection (01/14/19 09:00) Medications Given in ED Current Medications Medications Dose Ordered Sig/Jared Route Start Time Stop Time Status Last Admin Dose Admin Fentanyl Citrate 50 mcg ONCE ONCE IVP 01/14/19 07:30 01/14/19 07:31 DC 01/14/19 07:35 50 MCG Vital Signs/I&O 01/14/19 01/14/19 07:31 07:35 Temp 98.0 98.0 Pulse 88 Resp 18 B/P (MAP) 124/91 (102) Pulse Ox 100 O2 Delivery Room Air Progress Progress Note : Time: 08:55 Progress Note The patient's CT of the pelvis demonstrated a questionable fracture of the anterior cortex of the right acetabulum. An MRI was suggested for further evaluation. Patient's pain was significantly improved with 250 g doses of fentanyl IV in the emergency department. Telephone consultation was undertaken with Dr. Adams who is kind enough to follow up with the patient in the office. I discussed findings with patient and . Will discharge patient on Vicodin and Flexeril. I would not Bryan closely. 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 I reviewed her to call or return to the emergency department if she had any further problems or questions. Departure Impression Primary Impression: Fall Qualified Codes: W19.XXXA - Unspecified fall, initial encounter Additional Impression: Fracture of pelvis Qualified Codes: S32.414A - Nondisplaced fracture of anterior wall of right acetabulum, initial encounter for closed fracture Disposition: HOME, SELF-CARE Condition: Improved Departure-Patient Inst. Decision time for Depature: 09:00 Referrals: DANNY WALDRON DO (PCP/Family) Primary Care Physician JAMIN ADAMS MD Patient Instructions: Fracture (DC) Add. Discharge Instructions: Follow-up with Dr. Adams. Vicodin and Flexeril as prescribed. Return if any problems. Scripts Cyclobenzaprine HCl (Cyclobenzaprine HCl) 10 Mg Tablet 10 MG PO TID, #30 TAB Prov: ROBERTA MULLINS MD 01/14/19 Hydrocodone/Acetaminophen (Vicodin 5-300 mg Tablet) 1 Each Tablet 1-2 EACH PO Q6H PRN for PAIN-MODERATE MDD 10 for 7 Days, #30 TAB Prov: ROBERTA MULLINS MD 01/14/19 ROBETRA MULLINS MD Jan 14, 2019 07:24
[2019-01-14] MEDS ORDERED: fentaNYL INJECTION 100 MCG/2 ML AMP IVP ONE ×2 (07:30→09:00)
--- NOTE | 2019-01-14 08:22 | Diagnostic Imaging Report ---
PROCEDURE: CT pelvis without contrast. TECHNIQUE: Multiple contiguous axial images were obtained through the pelvis without the use of intravenous contrast. Sagittal and coronal reformations were performed. Auto Exposure Controls were utilized during the CT exam to meet ALARA standards for radiation dose reduction. INDICATION: Fell, sacral pain, right hip pain. There are no prior studies available for comparison. On the sagittal images, there is slight irregularity of the anterior cortex of the right acetabulum. There are no corresponding outlines seen on the images of the left acetabulum. I do suspect that this finding is related to a nondisplaced fracture. If further imaging is desired, then MRI would be recommended. There is no other fracture or acute bony abnormality appreciated. There is mild irregularity of both inferior pubic rami. This finding however is relatively symmetrical and consequently unlikely related to an acute injury. There is only mild degenerative disease involving the hip joints. There is no pelvic mass or free fluid collection. The urinary bladder and prostate gland are grossly unremarkable. The appendix was visualized and is not abnormally thickened. IMPRESSION: 1. The findings do suggest a nondisplaced fracture of the anterior cortex of the right acetabulum. If further imaging of this area is desired, MRI would be recommend. 2. There is no acute bony abnormality identified otherwise. Dictated by: Dictated on workstation # [id number]
[2019-01-14] MEDS ORDERED: HYDR-3455 PO (09:06)
[2019-01-14] MEDS ORDERED: CYCL10TA9 PO (09:06)
[2019-01-14 09:46] VITALS: BP 122/71
== END 2019-01-14 09:40 | disposition home or self-care (01) ==
LOC: EDUNIT# 07:03 → ER 07:04
DX: S32.414A Nondisplaced fracture of anterior wall of right acetabulum, initial encounter for closed fracture (principal); J45.909 Unspecified asthma, uncomplicated; F32.9 Major depressive disorder, single episode, unspecified; R40.2142 Coma scale, eyes open, spontaneous, at arrival to emergency department; R40.2252 Coma scale, best verbal response, oriented, at arrival to emergency department; R40.2362 Coma scale, best motor response, obeys commands, at arrival to emergency department; Z98.51 Tubal ligation status; Z90.710 Acquired absence of both cervix and uterus; W10.9XXA Fall (on) (from) unspecified stairs and steps, initial encounter
CPT/HCPCS: 72192

== ENCOUNTER → 2019-06-24 | Outpatient (CLI) | payer OTHER ==
[~2019-06-24] MED LIST changes: +CYCL10TA9 PO; +HYDR-3455 PO
--- NOTE | 2019-06-24 16:36 | Diagnostic Imaging Report ---
PROCEDURE: MRI right joint lower extremity without contrast. TECHNIQUE: Multiplanar, multisequence non contrast-enhanced MRI of the right lower extremity was accomplished. INDICATION: Medial right knee pain and swelling. COMPARISON: None. FINDINGS: No acute fracture or dislocation is seen in the right knee. Alignment appears normal. There is a small right knee joint effusion. The articular cartilage in the patellofemoral compartment demonstrates mild thinning. The articular cartilage in the medial and lateral compartments demonstrate no full-thickness defects. There is mildly increased signal in the medial and lateral menisci with no extension to the articular surface seen. The anterior and posterior cruciate ligaments are intact. The medial collateral ligament is intact, with mild adjacent edema. The lateral collateral ligamentous complex is intact. The extensor mechanism is intact. The medial and lateral retinacula are intact. The soft tissues about the right knee are otherwise unremarkable. IMPRESSION: 1. Mildly increased signal in the medial and lateral menisci may be due to intrasubstance degeneration. No extension to the articular surface is seen. 2. Mild edema about the medial collateral ligament consistent with a grade 1 sprain. No tear is seen. 3. Small right knee joint effusion. 4. Mild thinning of the articular cartilage in the patellofemoral compartment. Dictated on workstation # [id number]
== END ==
LOC: RAD 15:15
PROVIDERS: ATTEND Nurse Practitioner
DX: M25.461 Effusion, right knee (principal)
CPT/HCPCS: 73721

== ENCOUNTER → 2020-08-18 | Outpatient (CLI) | payer OTHER ==
--- NOTE | 2020-08-18 18:19 | Diagnostic Imaging Report ---
PROCEDURE: MR imaging of the brain without contrast. TECHNIQUE: Multiplanar, multisequence MR imaging of the brain was performed without contrast. DATE: August 18, 2020. COMPARISON: MRI brain October 03, 2006. HISTORY: 45-year-old female, migraine headaches without aura. FINDINGS: There is no restricted diffusion. There are no areas of abnormal intracranial susceptibility. The ventricles and CSF spaces are normal in size and configuration for patient age. There is no abnormal extra axial fluid collection. There is no acute intracranial hemorrhage. There is no mass effect or midline shift. There are no areas of abnormal intracranial signal. There is normal aeration of the visualized paranasal sinuses and mastoid air cells. IMPRESSION: Unremarkable MRI of the brain without contrast. Dictated by: Dictated on workstation # [id number]
== END ==
LOC: RAD 08-14 16:15
PROVIDERS: ATTEND Nurse Practitioner Family
DX: G43.009 Migraine without aura, not intractable, without status migrainosus (principal)
CPT/HCPCS: 70551

== ENCOUNTER → 2020-08-30 | Outpatient (CLI) | payer OTHER ==
--- NOTE | 2020-08-30 17:15 | Diagnostic Imaging Report ---
CLINICAL INDICATION: Patient with nontoxic multinodular goiter. EXAM: Thyroid ultrasound exam. COMPARISONS: Thyroid ultrasound exam dated 10/15/2016. FINDINGS: THYROID NODULES: There is interval development of a 1.1 cm x 1.1 cm x 1.1 cm heterogeneous isoechoic nodule involving the inferior aspect of the left thyroid lobe. There are small hypoechoic cystic structures associated with this nodule. There is no significant central Doppler flow. There is no significant change to the other three solid nodules involving the mid and upper left thyroid lobe. There is peripheral hypoechogenicity associated with these nodules and central Doppler flow noted. The more superior heterogeneous isoechoic left thyroid lobe nodule measures 1.2 cm x 0.8 cm x 1.3 cm. The more mid located isoechoic left thyroid lobe nodule measures 1.3 cm x 1.4 cm x 1.5 cm. The more inferior more hypoechoic heterogeneous nodule measures 1.3 cm x 1.3 cm x 1.6 cm. There is no significant change to the 8 mm x 7 mm x 7 mm hypoechoic nodule with eggshell calcification located in the superior aspect of the right thyroid lobe. There is no significant change to the 2 mm x 2 mm x 11 mm heterogeneous hypoechoic nodule involving the inferior aspect of the right thyroid lobe. There is central Doppler flow associated with this nodule. There are other smaller hypoechoic areas again noted within the midportion of the right thyroid lobe. THYROID GLAND: Besides the thyroid nodules, the thyroid gland has normal size, shape and echogenicity. The right lobe measures 5.4 cm x 1.6 cm x 1.6 cm and the left lobe measures 5.2 cm x 1.9 cm x 2.1 cm in their three dimensions. ISTHMUS: The isthmus measures 5 mm in thickness. IMPRESSION: 1: There is interval development of a 1.1 cm heterogeneous hypoechoic nodule involving the inferior aspect of the left thyroid lobe with no significant central Doppler flow. 2: Otherwise, again noted enlarged multinodular thyroid goiter with multiple bilateral thyroid lobe nodules which have not significantly changed in the interim. Dictated by: Dictated on workstation # [id number]
== END ==
LOC: RAD 15:36
PROVIDERS: ATTEND Nurse Practitioner Family
DX: E04.2 Nontoxic multinodular goiter (principal)
CPT/HCPCS: 76536

== ENCOUNTER → 2021-05-25 | Outpatient (CLI) | payer OTHER ==
[~2021-05-25] MED LIST changes: +CYCL10TA25 PO; -CYCL10TA9 PO
--- NOTE | 2021-05-25 17:42 | Diagnostic Imaging Report ---
PROCEDURE: CT urinary tract, rule out kidney stone. TECHNIQUE: Multiple contiguous axial images were obtained through the abdomen and pelvis without the use of intravenous contrast. Auto Exposure Controls were utilized during the CT exam to meet ALARA standards for radiation dose reduction. INDICATION: Pain, hematuria COMPARISON: 01/14/2019 and 09/20/2014 FINDINGS: The visualized lung bases are clear. Postsurgical changes of a fundoplication. Tiny hypodensity is noted within the left hepatic lobe which is too small to completely characterize. The unenhanced liver is otherwise unremarkable. The spleen is unremarkable. Cholecystectomy. The adrenal glands are unremarkable. The pancreas is unremarkable. Tiny fat-containing umbilical hernia. Minimal bilateral medullary calcinosis is identified. A 0.4 cm calcification is noted within the right abdomen at the level of L4/L5. This appears to be most likely adjacent to the mid right ureter and is not definitively within the right ureter itself. Multiple additional phleboliths are present at this location. No evidence of hydroureteronephrosis. Mild vascular calcifications without aneurysmal dilatation of the abdominal aorta. The appendix is unremarkable. The urinary bladder is unremarkable. The uterus is not visualized, likely surgically absent. No abnormal adnexal mass lesion. Mild colonic diverticulosis without CT evidence of diverticulitis. No significant adenopathy, free air, or free fluid within abdomen or pelvis. Minimal scattered osseous degenerative changes without acute osseous abnormality. IMPRESSION: Bilateral medullary calcinosis without evidence of hydroureteronephrosis. 4 mm calcification within the right abdomen is favored to relate to a phlebolith. Nonobstructing ureterolith is not completely excluded. Given lack of intravenous contrast, it is difficult to evaluate for underlying solid mass lesions within the kidneys. Faxed and called to Dr. Holt at 6:02 p.m. by jodie. Dictated by: Dictated on workstation # [id number]
== END ==
LOC: RAD 15:49
PROVIDERS: ATTEND Physician Assistant
DX: E83.59 Other disorders of calcium metabolism (principal); F32.9 Major depressive disorder, single episode, unspecified; M54.89 Other dorsalgia; G43.909 Migraine, unspecified, not intractable, without status migrainosus; R19.8 Other specified symptoms and signs involving the digestive system and abdomen; R12 Heartburn
CPT/HCPCS: 74176

== ENCOUNTER → 2021-06-04 | Outpatient (CLI) | payer OTHER ==
[~2021-06-04] MED LIST changes: +AMOX-355 PO; +ESCI-2 PO; +KETO10TA PO; +METF-397 PO; +NITR-65 PO; +TMSL.4C PO; +[UNRECOGNIZED DRUG - OTHER] PO
== END | disposition home or self-care (01) ==
LOC: PREOP 14:01
PROVIDERS: ATTEND Urology
DX: Z01.818 Encounter for other preprocedural examination (principal)

== ENCOUNTER → 2021-06-04 | Outpatient (CLI) | payer OTHER ==
--- NOTE | 2021-06-04 14:45 | Diagnostic Imaging Report ---
INDICATION: Abdominal pain. Hematuria. Right ureteral calculus. COMPARISON: CT dated 05/25/2021 FINDINGS: 2 frontal supine radiographic views of the abdomen and pelvis were obtained. Extraosseous calcification is identified projecting over the right transverse process of L5. This is felt to correspond to calculus measured on recent CT abdomen dated 05/25/2021. Several pelvic calcifications are also noted, maybe on the basis of pelvic phleboliths. No unexpected radiopaque foreign bodies are seen. Small bowel loops are nondistended. There is no large collection of free intraperitoneal air. Osseous structures show no gross acute abnormalities. IMPRESSION: 1. Possible distal right ureteral calculus projecting over the right transverse process of L5. 2. Nonobstructive small bowel gas pattern. Dictated by: Dictated on workstation # [id number]
== END ==
LOC: RAD 14:02
PROVIDERS: ATTEND Urology
DX: N20.1 Calculus of ureter (principal)
CPT/HCPCS: 74018

== ENCOUNTER 2021-06-05 05:53 | Day surgery (SDC) | payer OTHER ==
[~2021-06-05] VITALS: Ht 167 cm; Wt 109.0 kg
[2021-06-05] VITALS (9 sets, daily range): BP systolic 97–133; BP diastolic 53–84
[~2021-06-05 05:53] MED LIST changes: -AMOX-355 PO; -ESCI-2 PO; -KETO10TA PO; -METF-397 PO; -NITR-65 PO; -TMSL.4C PO; -[UNRECOGNIZED DRUG - OTHER] PO
[2021-06-05] MEDS ORDERED: cefTRIAXone 1 GM PRE-MIX 50 ML IV ONE ×2 (06:15→06:36)
[2021-06-05] MEDS: LACTATED RINGERS 1,000 ML IV PRN ×2 (06:45→08:27)
--- NOTE | 2021-06-05 06:59 | Progress Note-Pre Operative ---
Pre-Operative Progress Note H&P Reviewed The H&P was reviewed, patient examined and no changes noted. Date Seen by Provider: Jun 05, 2021 Time Seen by Provider: 06:58 Date H&P Reviewed: Jun 05, 2021 Time H&P Reviewed: 06:58 Pre-Operative Diagnosis: RT PROXIMAL URETERAL STONE MARIA TERESA NICHOLE MD Jun 05, 2021 06:59
[2021-06-05] MEDS ORDERED: FUROSEMIDE 40 MG/4 ML INJ (LASIX) ONE (07:01)
[2021-06-05] MEDS ORDERED: MIDAZOLAM 2 MG/2 ML (VERSED) VIAL ONE (07:01)
[2021-06-05] MEDS ORDERED: ONDANSETRON 4 MG/2 ML (SDV) Z0FRAN ONE (07:01)
[2021-06-05] MEDS ORDERED: LIDOCAINE PF 2% 5 ML (XYLOCAINE) VIAL ONE (07:01)
[2021-06-05] MEDS ORDERED: KETOROLAC 30 MG/ML VIAL ONE (07:01)
[2021-06-05] MEDS ORDERED: proPOfol 200 MG/20 ML (DIPRIVAN) VIAL IV ONE (07:01)
[2021-06-05] MEDS ORDERED: fentaNYL INJ 100 MCG/2 ML AMP ONE ×2 (07:01→10:18)
[2021-06-05] MEDS ORDERED: TMSL.4C PO ×4 (07:32→09:16)
[2021-06-05] MEDS ORDERED: [UNRECOGNIZED DRUG - OTHER] PO ×2 (07:32)
[2021-06-05] MEDS ORDERED: AMOX-355 PO ×2 (07:32)
[2021-06-05] MEDS ORDERED: ESCI-2 PO ×2 (07:32)
[2021-06-05] MEDS ORDERED: METF-397 PO ×2 (07:32)
--- NOTE | 2021-06-05 07:35 | Diagnostic Imaging Report ---
INDICATION: Right ureteral stone COMPARISON: 06/04/[address] dated 05/25/2021 TECHNIQUE: Single radiograph of abdomen dated 06/05/2021 FINDINGS: 4 mm calcification is again identified adjacent to the right L5 transverse process. This appears similar to the prior examination. Multiple phlebolith are present within the lower pelvis. No additional calcifications overlying the renal shadows. Nonobstructive bowel gas pattern. Surgical clips right upper quadrant abdomen. No free air. IMPRESSION: Stable 4 mm calcification adjacent to the right L5 transverse process. When correlating with prior radiographs and CT, it is unclear whether this relates to a stable right-sided ureterolith versus simply a phlebolith. Additional phleboliths within the lower pelvis. Dictated by: Dictated on workstation # [id number]
--- NOTE | 2021-06-05 08:40 | Progress Note-Post Operative ---
Post-Operative Progess Note Surgeon (s)/Ethylene Compressor Operator (s) Surgeon MARIA TERESA NICHOLE MD Ethylene Compressor Operator: NONE Pre-Operative Diagnosis RT PROXIMAL URETERAL STONE Post-Operative Diagnosis SAME Procedure & Operative Findings Date of Procedure 06/05/21 Procedure Performed/Findings RT ESWL Anesthesia Type GENERAL Estimated Blood Loss Estimated blood loss (mL): NONE Specimens/Packing Specimens Removed NONE Packing: NONE MARIA TERESA NICHOLE MD Jun 05, 2021 08:40
--- NOTE | 2021-06-05 08:42 | Discharge Inst-Urology ---
Discharge Inst-Urology Reconcile Patient Problems Problems Reviewed?: Yes Final Diagnosis RT PROXIMAL URETERAL STONE Patient Instructions/Follow Up Plan/Assessment/Instructions Please make appointment to been seen in office in 3 weeks. KUB prior to it KUB on way home Post ESWL instructions Increase oral fluids for 48 hours and then as needed. Diet and Activity as tolerated. If questions or concerns contact your physician Or seek help at emergency department. MARIA TERESA NICHOLE MD Jun 05, 2021 08:42
[2021-06-05] MEDS ORDERED: SEVOFLURANE (ULTANE) 15 ML INHAL SOLN ONE (08:45)
[2021-06-05] MEDS ORDERED: KETO10TA PO ×2 (09:16)
[2021-06-05] MEDS ORDERED: NITR-65 PO ×2 (09:16)
[2021-06-05] MEDS ORDERED: fentaNYL INJ 100 MCG/2 ML AMP IVP ONE (10:30)
--- NOTE | 2021-06-05 12:02 | Diagnostic Imaging Report ---
History: Post procedure TECHNIQUE: Frontal view the abdomen COMPARISON: Radiograph the same day FINDINGS: Redemonstrated is a 4 mm calculus along the course of the right ureter inferior to the right L4 transverse process. Multiple phleboliths are seen in the pelvis. The bowel loops are nondistended without obstruction. There is no large collection of free air. IMPRESSION: 1. Unchanged 4 mm calculus adjacent to the right L4 transverse process, may represent a ureteral stone versus a phlebolith. Dictated by: Dictated on workstation # [id number]
--- NOTE | 2021-06-05 13:24 | OPERATIVE REPORT ---
DATE OF SERVICE: 06/05/2021 PREOPERATIVE DIAGNOSIS: Right proximal ureteral stone. POSTOPERATIVE DIAGNOSIS: Right proximal ureteral stone. OPERATION PERFORMED: Right ESWL. SURGEON: Ariel Nichole MD. ANESTHESIA: General. COMPLICATIONS: None. DESCRIPTION OF PROCEDURE: Under satisfactory general anesthesia, the patient in a supine position on the ESWL table, the right proximal ureteral stone was localized. Shocks were delivered at kV of 6 and gradually increased. A total of 3000 shocks completely fragmented the stone that was hardly visualized. The patient received 40 mg of Lasix and 30 mg of Toradol IV at the end of the procedure. She tolerated the procedure and anesthesia well and was sent to recovery room in a stable condition. Job ID: [id number] DocumentID: [id number] Dictated Date: 06/05/2021 09:03:19 Regional Sales Trainer Date: 06/05/2021 13:24:13 Dictated By: ARIEL NICHOLE MD
--- NOTE | 2021-06-05 13:53 | Anesthesia-General Post-Op ---
General Patient Condition Mental Status/LOC: Same as Preop Cardiovascular: Satisfactory Nausea/Vomiting: Absent Respiratory: Satisfactory Pain: Controlled Complications: Absent Post Op Complications Complications None Follow Up Care/Instructions Patient Instructions None needed. Anesthesia/Patient Condition Patient Condition Patient is doing well, no complaints, stable vital signs, no apparent adverse anesthesia problems. No complications reported per nursing. DARRYL SHANNON CRNA Jun 05, 2021 13:53
== END 2021-06-05 11:30 | disposition home or self-care (01) ==
LOC: SDC 05:53
PROVIDERS: ATTEND Urology
DX: N20.1 Calculus of ureter (principal); I10 Essential (primary) hypertension; F32.A Depression, unspecified; F41.9 Anxiety disorder, unspecified; E11.9 Type 2 diabetes mellitus without complications; K58.9 Irritable bowel syndrome, unspecified; Z79.899 Other long term (current) drug therapy; Z79.84 Long term (current) use of oral hypoglycemic drugs
CPT/HCPCS: 74018; 87081

== ENCOUNTER → 2021-07-03 | Outpatient (CLI) | payer OTHER ==
[~2021-07-03] MED LIST changes: +AMOX-355 PO; +ESCI-2 PO; +KETO10TA PO; +METF-397 PO; +NITR-65 PO; +TMSL.4C PO; +[UNRECOGNIZED DRUG - OTHER] PO
--- NOTE | 2021-07-03 14:42 | Diagnostic Imaging Report ---
INDICATION: Right upper ureteral stone. TIME OF EXAM: 2:13 PM Correlation is made with prior radiograph from 06/05/2021. A 4 mm calculus previously noted in the right ureter appears to be slightly lower on today's study, now at approximately level of the right L5 transverse process. Pelvic calcifications appear to be stable. Bowel gas pattern is unremarkable. IMPRESSION: Right ureteral calculus previously described is slightly more distal on today's study when compared with examination approximately one month earlier. Dictated by: Dictated on workstation # [id number]
== END ==
LOC: RAD 13:40
PROVIDERS: ATTEND Urology
DX: N20.1 Calculus of ureter (principal)
CPT/HCPCS: 74018

== ENCOUNTER → 2021-10-04 | Outpatient (CLI) | payer OTHER ==
--- NOTE | 2021-10-04 16:25 | Diagnostic Imaging Report ---
INDICATION: PAIN COMPARISON: CT dated 05/25/2021 FINDINGS: 2 frontal supine radiographic views of the abdomen were obtained and demonstrate nondistended loops of small bowel. There is no large collection of free peritoneal air. Mild air and stool are seen scattered throughout the colon. No unexpected extraosseous calcifications or radiopaque foreign bodies are seen. Bilateral pelvic and right gonadal vein phleboliths are noted. Bony structures show no gross acute abnormalities. IMPRESSION: 1. Nonobstructed small bowel gas pattern. Dictated by: Dictated on workstation # [id number]
--- NOTE | 2021-10-04 18:16 | Diagnostic Imaging Report ---
INDICATION: Right-sided flank pain and left upper quadrant pain, prior history of stones. TECHNIQUE: Multiple contiguous axial images were obtained through the abdomen and pelvis without the use of intravenous contrast. Auto Exposure Controls were utilized during the CT exam to meet ALARA standards for radiation dose reduction. COMPARISON: Comparison made to prior study of 05/25/2021. FINDINGS: The visualized portions of the lung bases are clear. There were no pleural fluid collections. There is no free intraperitoneal air. The liver shows tiny cyst in the left lobe which is unchanged from the prior study. Patient has had prior cholecystectomy. The spleen, pancreas, and adrenals are normal. The left kidney appeared normal. The right kidney shows some tiny intrarenal calculi in the lower pole. There is no hydronephrosis. There are calcifications in the right side of the retroperitoneum inferiorly which appear to be separate from the ureter and are unchanged compared to the prior study. There is no retroperitoneal mass or adenopathy. There is no ascites or abnormal fluid collection. Visualized bowel loops including the appendix are normal. IMPRESSION: Small intrarenal calculi in the lower pole of the right kidney are noted. There is no ureteral stone or hydronephrosis. There are calcifications in the right side of the retroperitoneum which are unchanged from the previous study and appear to be separate from the ureter. There is no acute-appearing abnormality. Tiny cyst in the left lobe of the liver is noted. Patient has had prior cholecystectomy. Dictated by: Dictated on workstation # [id number]
== END ==
LOC: RAD 16:15
PROVIDERS: ATTEND Urology
DX: N20.0 Calculus of kidney (principal); K76.89 Other specified diseases of liver; Z90.49 Acquired absence of other specified parts of digestive tract
CPT/HCPCS: 74018; 74176

== ENCOUNTER 2022-05-28 14:34 | Emergency (ER) | payer OTHER ==
[~2022-05-28] VITALS: Ht 170.2 cm; Wt 85.3 kg
[2022-05-28] MEDS ORDERED: RT-ALBUTEROL HFA 8.5 GM INHALER IH STA (14:46)
--- NOTE | 2022-05-28 14:54 | ED Cough/URI ---
General Chief Complaint: Respiratory Problems Stated Complaint: COUGH | CONGESTION Nursing Triage Note: PT AMB TO RM 9 WITH COMPLAINT OF SOA, COUGH, AND BREATHING FAST. STATES COUGH STARTED YESTERDAY History of Present Illness Date Seen by Provider: May 28, 2022 Time Seen by Provider: 14:40 Initial Comments 47 year old female presents hyperventilating and stating she is SOA. SaO2 100%, Resp rate 30-40. Instructed to slow breathing and relax. Resp rate improved to 20-30, SaO2 remained 100%. Heart rate 90-110, but improved to 80-100. Hx of asthma as child, has not used inhalers in 20+ years. has fevers, cough, myalgias, was COVID Neg but not tested for Flu, has lung Cancer. Patient is not vaccinated for flu or COVID. Previous smoker. She took ibuprofen at noon and DayQuil this morning. Timing/Duration: yesterday Severity/Quality: dry cough Prior Episodes/Possible Cause: no prior episodes Associated Symptoms: cough, lightheadedness, muscle aches, shortness of breath Allergies and Home Medications Allergies Coded Allergies: No Known Drug Allergies (Unverified , 11/27/13) Patient Home Medication List Home Medication List Reviewed: Yes Amoxicillin/Potassium Clav (Augmentin 500-125 Tablet) 1 Each Tablet, 1 EACH PO BID, (Reported) Entered as Reported by: JAX NEWSOME on 06/05/21 07 Cyclobenzaprine HCl (Cyclobenzaprine HCl) 10 Mg Tablet, 10 MG PO TID Prescribed by: ROBERTA MULLINS MD on 01/14/19905 Escitalopram Oxalate (Escitalopram Oxalate) 10 Mg Tablet, 20 MG PO DAILY, (Reported) Entered as Reported by: JAX NEWSOME on 06/05/21 0732 Hydrocodone/Acetaminophen (Vicodin 5-300 mg Tablet) 1 Each Tablet, 1-2 EACH PO Q6H PRN for PAIN-MODERATE Prescribed by: ROBERTA MULLINS MD on 01/14/19905 Ketorolac Tromethamine (Ketorolac Tromethamine) 10 Mg Tablet, 10 MG PO Q6H Prescribed by: JAX NEWSOME on 06/05/21 0916 Metformin HCl (Metformin HCl) 500 Mg Tablet, 500 MG PO DAILY, (Reported) Entered as Reported by: JAX NEWSOME on 06/05/21731 Nitrofurantoin Monohyd/M-Cryst (Macrobid 100 mg Capsule) 100 Mg Capsule, 1 TAB PO BID WITH MEALS Prescribed by: JAX NEWSOME on 06/05/21915 Tamsulosin HCl (Flomax) 0.4 Mg Cap, 0.4 MG PO DAILY, (Reported) Entered as Reported by: JAX NEWSOME on 06/05/21731 Tamsulosin HCl (Flomax) 0.4 Mg Cap, 0.4 MG PO DAILY Prescribed by: JAX NEWSOME on 06/05/21915 [Lipsinol] , 10 MG PO DAILY, (Reported) Entered as Reported by: JAX NEWSOME on 06/05/21731 Review of Systems Review of Systems Constitutional: no symptoms reported, see HPI Respiratory: see HPI, short of breath Cardiovascular: no symptoms reported, see HPI; No chest pain Gastrointestinal: no symptoms reported, see HPI : No (hx of hysterectomy) All Other Systems Reviewed Negative Unless Noted: Yes Past Ilvzbvv-Ttuxxz-Djodvz Hx Patient Social History Tobacco Use?: No Use of E-Cig and/or Vaping dev: No Substance use?: No Alcohol Use?: No Pt feels they are or have been: No Immunizations Up To Date Influenza Vaccine Up-to-Date: No; Not Current First/Initial COVID19 Vaccinat: no Past Medical History Surgeries: Yes (LAP ANANTH) Section, Gallbladder, Hysterectomy, Orthopedic Respiratory: Yes Asthma Currently Using CPAP: No Currently Using BIPAP: No Cardiac: Yes (MITRAL VALVE PROLAPSE) Hypertension 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 oz. 90.289633il; 29.00 BMI Method:Estimated General Appearance: WD/WN, mild distress (improved within 5-10 min with coaching to calm down and long deep breaths. ) HEENT: normal ENT inspection, TMs normal, pharynx normal Neck: non-tender, full range of motion, supple, normal inspection Respiratory: chest non-tender, lungs clear, normal breath sounds Cardiovascular: normal peripheral pulses, regular rate, rhythm Gastrointestinal: normal bowel sounds, non tender, soft Neurologic/Psychiatric: no motor/sensory deficits, alert, normal mood/affect, oriented x 3 Skin: normal color, warm/dry Progress/Results/Core Measures Suspected Sepsis SIRS Temperature: Pulse: 105 Respiratory Rate: 30 Laboratory Tests 05/28/22 14:55: White Blood Count 8.0 Blood Pressure 121 /89 Mean: 100 Laboratory Tests 05/28/22 14:55: Creatinine 1.02, Platelet Count 295, Total Bilirubin 0.6 Results/Orders Lab Results Laboratory Tests Test 05/28/22 14:43 05/28/22 14:55 Range/Units Influenza Type A (RT-PCR) Detected H Not Detecte Influenza Type B (RT-PCR) Not Detected Not Detecte SARS-CoV-2 RNA (RT-PCR) Not Detected Not Detecte White Blood Count 8.0 4.3-11.0 10^3/uL Red Blood Count 5.24 H 3.80-5.11 10^6/uL Hemoglobin 14.7 11.5-16.0 g/dL Hematocrit 42 35-52 % Mean Corpuscular Volume 80 80-99 fL Mean Corpuscular Hemoglobin 28 25-34 pg Mean Corpuscular Hemoglobin Concent 35 32-36 g/dL Red Cell Distribution Width 12.6 10.0-14.5 % Platelet Count 295 130-400 10^3/uL Mean Platelet Volume 9.3 9.0-12.2 fL Immature Granulocyte % (Auto) 0 % Neutrophils (%) (Auto) 83 H 42-75 % Lymphocytes (%) (Auto) 10 L 12-44 % Monocytes (%) (Auto) 7 0-12 % Eosinophils (%) (Auto) 0 0-10 % Basophils (%) (Auto) 0 0-10 % Neutrophils # (Auto) 6.7 1.8-7.8 X 10^3 Lymphocytes # (Auto) 0.8 L 1.0-4.0 X 10^3 Monocytes # (Auto) 0.5 0.0-1.0 X 10^3 Eosinophils # (Auto) 0.0 0.0-0.3 10^3/uL Basophils # (Auto) 0.0 0.0-0.1 10^3/uL Immature Granulocyte # (Auto) 0.0 0.0-0.1 10^3/uL Sodium Level 136 135-145 MMOL/L Potassium Level 3.3 L 3.6-5.0 MMOL/L Chloride Level 104 98-107 MMOL/L Carbon Dioxide Level 20 L 21-32 MMOL/L Anion Gap 12 5-14 MMOL/L Blood Urea Nitrogen 7 7-18 MG/DL Creatinine 1.02 0.60-1.30 MG/DL Estimat Glomerular Filtration Rate 68 BUN/Creatinine Ratio 7 Glucose Level 103 70-105 MG/DL Calcium Level 9.2 8.5-10.1 MG/DL Corrected Calcium 9.1 8.5-10.1 MG/DL Total Bilirubin 0.6 0.1-1.0 MG/DL Aspartate Amino Transf (AST/SGOT) 21 5-34 U/L Alanine Aminotransferase (ALT/SGPT) 33 0-55 U/L Alkaline Phosphatase 84 40-136 U/L C-Reactive Protein High Sensitivity 0.91 H 0.00-0.50 MG/DL Total Protein 6.7 6.4-8.2 GM/DL Albumin 4.1 3.2-4.5 GM/DL My Orders Orders - PATSY GREENE Chest 1 View, Ap/Pa Only (05/28/22 14:46) Cbc With Automated Diff (05/28/22 14:46) Comprehensive Metabolic Panel (05/28/22 14:46) Hs C Reactive Protein (05/28/22 14:46) Albuterol Inhaler (Albuterol) (05/28/22 14:46) Covid 19 Inhouse Test (05/28/22 14:46) Influenza A And B By Pcr (05/28/22 14:46) Vital Signs/I&O 05/28/22 14:38 Temp 35.0 Pulse 105 Resp 30 B/P (MAP) 121/89 (100) Pulse Ox 100 O2 Delivery Room Air Capillary Refill : Less Than 3 Seconds Blood Pressure Mean: 100 Progress Note : Time: 14:40 Progress Note Patient assessed, was hyperventilating after calming her. Explained that her SaO2 is remained 100%. Will obtain COVID and flu testing, labs and chest x-ray. Ventolin 2 puffs by HFA with spacer. 1500 patient reports less SOA. Awaiting CXR. 1520 Labs all WNL, patient reports improvement. Flu A positive. Discharge directions and return precautions reviewed with the patient. All questions answered. Diagnostic Imaging Diagonstic Imaging: Xray Plain Films/CT/US/NM/MRI: chest Comments NAME: SUSI AMADOR [facility] REC#: [id number] PT STATUS: REG ER : 1975 PHYSICIAN: PATSY GREENE ADMIT DATE: 05/28/22/ER Draft Date of Exam:05/28/22 CHEST 1 VIEW, AP/PA ONLY INDICATION: Cough and congestion. COMPARISON: Exam compared to 02/24/2016. FINDINGS: Lungs are clear. No failure, effusion, or pneumothorax. IMPRESSION: Negative. Dictated on workstation # [id number] Dict: 05/28/22 1513 Trans: 05/28/22 1520 [id number] Interpreted by: MIRTHA SUTTON Electronically signed by: Reviewed: Reviewed by Me Departure Impression Primary Impression: Cough Qualified Codes: R05.1 - Acute cough Additional Impressions: Shortness of breath Influenza A Disposition: 01 HOME, SELF-CARE Condition: Improved Departure-Patient Inst. Decision time for Depature: 15:10 Referrals: DANNY WALDRON DO (PCP/Family) Primary Care Physician Patient Instructions: Cough, Adult (DC), Flu, Adult (DC) Add. Discharge Instructions: Use inhaler every 4 hours for Shortness of breath and/or coughing. Use over the counter DayQuil/Nyquil. Eat 1 banana daily, for potassium. Alternate between ibuprofen 600 mg and Tylenol 650 mg every 4 hours for fever and generalized discomforts. Increase water intake, 16 ounces every 2 hours while awake. Make sure you are ambulating 5 to 10 minutes every few hours. Stay home for 3-5 days, to avoid sharing Flu with others. Or until fever free 24 hours, without medications. Follow-up with your primary care provider if symptoms or not improving or worsen. All discharge instructions reviewed with patient and/or family. Voiced understanding. Work/School Note: Work Release Form Date Seen in the Emergency Department: May 28, 2022 Return to Work: Jun 03, 2022 Restrictions: No Restrictions PATSY GREENE May 28, 2022 14:54
[2022-05-28 15:03] LABS: BASOPHILS % (AUTO) 0 % (0-10); EOSINOPHILS % (AUTO) 0 % (0-10); HEMATOCRIT 42 % (35-52); HEMOGLOBIN 14.7 g/dL (11.5-16.0); LYMPHOCYTES # (AUTO) 0.8 X 10^3 (1.0-4.0); LYMPHOCYTES % (AUTO) 10 % (12-44); MEAN CORPUSCULAR HEMOGLOBIN 28 pg (25-34); MEAN CORPUSCULAR HGB CONC 35 g/dL (32-36); MEAN CORPUSCULAR VOLUME 80 fL (80-99); MEAN PLATELET VOLUME 9.3 fL (9.0-12.2); MONOCYTES # (AUTO) 0.5 X 10^3 (0.0-1.0); MONOCYTES % (AUTO) 7 % (0-12); NEUTROPHILS # (AUTO) 6.7 X 10^3 (1.8-7.8); NEUTROPHILS % (AUTO) 83 % (42-75); PLATELET COUNT 295 10^3/uL (130-400)
--- NOTE | 2022-05-28 15:20 | Diagnostic Imaging Report ---
INDICATION: Cough and congestion. COMPARISON: Exam compared to 02/24/2016. FINDINGS: Lungs are clear. No failure, effusion, or pneumothorax. IMPRESSION: Negative. Dictated by: Dictated on workstation # [id number]
[2022-05-28 15:24] LABS: ALBUMIN 4.1 GM/DL (3.2-4.5); BILIRUBIN,TOTAL 0.6 MG/DL (0.1-1.0); CALCIUM 9.2 MG/DL (8.5-10.1); CREATININE SERUM 1.02 MG/DL (0.60-1.30); POTASSIUM 3.3 MMOL/L (3.6-5.0); TOTAL PROTEIN 6.7 GM/DL (6.4-8.2)
[2022-05-28 15:35] VITALS: BP 123/80
== END 2022-05-28 15:34 | disposition home or self-care (01) ==
LOC: EDUNIT# 14:34 → ER 14:35
DX: J10.1 Influenza due to other identified influenza virus with other respiratory manifestations (principal); Z20.822 Contact with and (suspected) exposure to COVID-19
CPT/HCPCS: 36415; 71045; 80053; 85025; 86141; 87636

== ENCOUNTER 2022-06-06 07:54 | Emergency (ER) | payer OTHER ==
[~2022-06-06] VITALS: Ht 170.2 cm; Wt 83.5 kg
[2022-06-06] MEDS ORDERED: ASPIRIN 81 MG CHEW (CHILDREN'S ASA) PO ONE (08:15)
[2022-06-06] MEDS ORDERED: NS IV 1000 ML 1,000 ML IV ONE (08:15)
[2022-06-06] MEDS ORDERED: NITROGLYCERIN 0.4 MG SL TABS BTL 25'S SL PRN (08:15)
[2022-06-06 08:17] LABS: BASOPHILS % (AUTO) 0 % (0-10); EOSINOPHILS # (AUTO) 0.1 10^3/uL (0.0-0.3); EOSINOPHILS % (AUTO) 1 % (0-10); HEMATOCRIT 49 % (35-52); HEMOGLOBIN 17.3 g/dL (11.5-16.0); LYMPHOCYTES # (AUTO) 2.4 10^3/uL (1.0-4.0); LYMPHOCYTES % (AUTO) 34 % (12-44); MEAN CORPUSCULAR HEMOGLOBIN 28 pg (25-34); MEAN CORPUSCULAR HGB CONC 35 g/dL (32-36); MEAN CORPUSCULAR VOLUME 80 fL (80-99); MEAN PLATELET VOLUME 9.4 fL (9.0-12.2); MONOCYTES # (AUTO) 0.3 10^3/uL (0.0-1.0); MONOCYTES % (AUTO) 4 % (0-12); NEUTROPHILS # (AUTO) 4.2 10^3/uL (1.8-7.8); NEUTROPHILS % (AUTO) 59 % (42-75); PLATELET COUNT 453 10^3/uL (130-400); WHITE BLOOD COUNT 7.1 10^3/uL (4.3-11.0)
--- NOTE | 2022-06-06 08:19 | ED Chest Pain ---
General Stated Complaint: CHEST PAINS | JAW AND NECK PAIN | SWEATING Source: patient Exam Limitations: no limitations History of Present Illness Date Seen by Provider: Jun 06, 2022 Time Seen by Provider: 07:57 Initial Comments Here with report of upper chest pain that radiates into her neck and jaw that is associated with sweating. She states she woke up around 6:30 AM and was okay but after getting up she noted fast heart rate and then the chest pain started. She does have history of fast heart rate occasionally. Does have family history of cardiac events with her father in his 50s. She just recently recovered from influenza that was diagnosed last week. 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 Holt. 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: No NTG SL MECHANICAL SHOP LABORER: No Associated Symptoms: No abdominal pain, No back pain; diaphoresis, dizziness; No edema, No fatigue, No fever/chills, No nausea/vomiting, No shortness of breath, No weakness Allergies and Home Medications Allergies Coded Allergies: No Known Drug Allergies (Unverified , 11/27/13) Patient Home Medication List Home Medication List Reviewed: Yes Amoxicillin/Potassium Clav (Augmentin 500-125 Tablet) 1 Each Tablet, 1 EACH PO BID, (Reported) Entered as Reported by: JAX NEWSOME on 06/05/21 0732 Cyclobenzaprine HCl (Cyclobenzaprine HCl) 10 Mg Tablet, 10 MG PO TID Prescribed by: ROBERTA MULLINS MD on 01/14/19905 Escitalopram Oxalate (Escitalopram Oxalate) 10 Mg Tablet, 20 MG PO DAILY, (Reported) Entered as Reported by: JAX NEWSOME on 06/05/21 0732 Hydrocodone/Acetaminophen (Vicodin 5-300 mg Tablet) 1 Each Tablet, 1-2 EACH PO Q6H PRN for PAIN-MODERATE Prescribed by: ROBERTA MULLINS MD on 01/14/19905 Ketorolac Tromethamine (Ketorolac Tromethamine) 10 Mg Tablet, 10 MG PO Q6H Prescribed by: JAX NEWSOME on 06/05/21 0916 Metformin HCl (Metformin HCl) 500 Mg Tablet, 500 MG PO DAILY, (Reported) Entered as Reported by: JAX NEWSOME on 06/05/21731 Nitrofurantoin Monohyd/M-Cryst (Macrobid 100 mg Capsule) 100 Mg Capsule, 1 TAB PO BID WITH MEALS Prescribed by: JAX NEWSOME on 06/05/21915 Tamsulosin HCl (Flomax) 0.4 Mg Cap, 0.4 MG PO DAILY, (Reported) Entered as Reported by: JAX NEWSOME on 06/05/21731 Tamsulosin HCl (Flomax) 0.4 Mg Cap, 0.4 MG PO DAILY Prescribed by: JAX NEWSOME on 06/05/21915 [Lipsinol] , 10 MG PO DAILY, (Reported) Entered as Reported by: JAX NEWSOME on 06/05/21731 Review of Systems Review of Systems Constitutional: see HPI; No chills, No fever EENTM: No Nose Congestion, No Throat Pain Respiratory: Denies Cough, Denies Shortness of Air Cardiovascular: Chest Pain; Denies Edema; Irregular Heart Rate, Palpitations Gastrointestinal: Denies Abdominal Pain, Denies Nausea, Denies Vomiting Genitourinary: No Symptoms Reported Musculoskeletal: no symptoms reported Skin: no symptoms reported Psychiatric/Neurological: No Symptoms Reported All Other Systems Reviewed Negative Unless Noted: Yes Past Yiykwjd-Yytyjp-Zjuefl Hx Patient Social History Tobacco Use?: No Substance use?: No Alcohol Use?: No Immunizations Up To Date First/Initial COVID19 Vaccinat: no Past Medical History Surgeries: Yes (LAP ANANTH) Section, Gallbladder, Hysterectomy, Orthopedic Respiratory: Yes Asthma Currently Using CPAP: No Currently Using BIPAP: No Cardiac: Yes (MITRAL VALVE PROLAPSE) Hypertension 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 oz. [id number]; 29.00 BMI Method:Estimated General Appearance: WD/WN, Anxious HEENT: PERRL/EOMI, Pharynx Normal Neck: Non Tender, Supple Respiratory: Lungs Clear, Normal Breath Sounds Cardiovascular: No Murmur, Tachycardia Gastrointestinal: Non Tender, Soft Extremity: Normal Range of Motion, Non Tender Neurologic/Psychiatric: Alert, Oriented x3 Skin: Normal Color, Warm/Dry Progress/Results/Core Measures Results/Orders Lab Results Laboratory Tests Test 06/06/22 08:10 06/06/22 10:16 Range/Units White Blood Count 7.1 4.3-11.0 10^3/uL Red Blood Count 6.15 H 3.80-5.11 10^6/uL Hemoglobin 17.3 H 11.5-16.0 g/dL Hematocrit 49 35-52 % Mean Corpuscular Volume 80 80-99 fL Mean Corpuscular Hemoglobin 28 25-34 pg Mean Corpuscular Hemoglobin Concent 35 32-36 g/dL Red Cell Distribution Width 12.4 10.0-14.5 % Platelet Count 453 H 130-400 10^3/uL Mean Platelet Volume 9.4 9.0-12.2 fL Immature Granulocyte % (Auto) 0 % Neutrophils (%) (Auto) 59 42-75 % Lymphocytes (%) (Auto) 34 12-44 % Monocytes (%) (Auto) 4 0-12 % Eosinophils (%) (Auto) 1 0-10 % Basophils (%) (Auto) 0 0-10 % Neutrophils # (Auto) 4.2 1.8-7.8 10^3/uL Lymphocytes # (Auto) 2.4 1.0-4.0 10^3/uL Monocytes # (Auto) 0.3 0.0-1.0 10^3/uL Eosinophils # (Auto) 0.1 0.0-0.3 10^3/uL Basophils # (Auto) 0.0 0.0-0.1 10^3/uL Immature Granulocyte # (Auto) 0.0 0.0-0.1 10^3/uL Prothrombin Time 11.9 L 12.2-14.7 SEC INR Comment 0.8 0.8-1.4 Activated Partial Thromboplast Time 28 24-35 SEC D-Dimer 0.32 0.00-0.49 UG/ML Sodium Level 141 135-145 MMOL/L Potassium Level 4.0 3.6-5.0 MMOL/L Chloride Level 105 98-107 MMOL/L Carbon Dioxide Level 20 L 21-32 MMOL/L Anion Gap 16 H 5-14 MMOL/L Blood Urea Nitrogen 7 7-18 MG/DL Creatinine 1.14 0.60-1.30 MG/DL Estimat Glomerular Filtration Rate 60 BUN/Creatinine Ratio 6 Glucose Level 114 H 70-105 MG/DL Calcium Level 10.0 8.5-10.1 MG/DL Corrected Calcium 9.7 8.5-10.1 MG/DL Magnesium Level 1.8 1.6-2.4 MG/DL Total Bilirubin 0.9 0.1-1.0 MG/DL Aspartate Amino Transf (AST/SGOT) 42 H 5-34 U/L Alanine Aminotransferase (ALT/SGPT) 74 H 0-55 U/L Alkaline Phosphatase 95 40-136 U/L Myoglobin 57.5 10.0-92.0 NG/ML Troponin I < 0.028 < 0.028 <0.028 NG/ML Total Protein 7.6 6.4-8.2 GM/DL Albumin 4.4 3.2-4.5 GM/DL TSH [place] Testing 1.10 0.35-4.94 UIU/ML My Orders Orders - ANDREW PINTO MD Ekg Tracing (06/06/22 07:57) Cbc With Automated Diff (06/06/22 08:06) Magnesium (06/06/22 08:06) Chest 1 View, Ap/Pa Only (06/06/22 08:06) Ekg Tracing (06/06/22 08:06) Comprehensive Metabolic Panel (06/06/22 08:06) Myoglobin Serum (06/06/22 08:06) Protime With Inr (06/06/22 08:06) Partial Thromboplastin Time (06/06/22 08:06) Monitor-Rhythm Ecg Trace Only (06/06/22 08:06) Lipid Panel (06/07/22 06:00) Ed Iv/Invasive Line Start (06/06/22 08:06) Fibrin Degradation Products (06/06/22 08:06) Aspirin Chewable Tablet (Baby Aspirin Ch (06/06/22 08:15) Ns Iv 1000 Ml (Sodium Chloride 0.9%) (06/06/22 08:15) Nitroglycerin 0.4 Mg Btl 25's (Nitrostat (06/06/22 08:15) Thyroid Analyzer (06/06/22 08:10) Troponin I [place] (06/06/22 08:10) Troponin I [place] (06/06/22 10:15) Ns Iv 1000 Ml (Sodium Chloride 0.9%) (06/06/22 09:54) Medications Given in ED Current Medications Medications Dose Ordered Sig/Jared Route Start Time Stop Time Status Last Admin Dose Admin Aspirin 324 mg ONCE ONCE PO 06/06/22 08:15 06/06/22 08:16 DC 06/06/22 08:17 324 MG Sodium Chloride 1,000 ml @ 0 mls/hr Q0M ONCE IV 06/06/22 08:15 06/06/22 08:16 DC 06/06/22 08:17 0 MLS/HR Vital Signs/I&O 06/06/22 07:58 Pulse 124 Resp 21 B/P (MAP) 134/98 (110) Pulse Ox 100 O2 Delivery Room Air Progress Progress Note : Progress Note Seen and evaluated. IV, CBC, CMP, troponin, D-dimer and thyroid study ordered. Nurse noted that patient had bilateral hand cramping when blood pressure tourniquet applied and there may be component of electrolyte abnormality especially after recent influenza infection. We will evaluate for cardiac etiology, possible pulmonary embolism, electrolyte abnormality and thyroid dysfunction given her presenting complaints. Normal saline 1 L bolus ordered. ASA 324 mg p.o. ordered. Nitroglycerin sublingual p.o. ordered but held due to systolic blood pressure greater than 100. Monitor patient. 0915: Troponin is negative as well as D-dimer. Chest x-ray shows no acute findings. See radiology report for details. Normal saline 1 L bolus is and. Patient is feeling better. CBC shows quite concentrated hemoglobin and I do believe this is related to dehydration. She has normal electrolytes on CMP. We will repeat troponin and 1 hour and give 1 more liter of normal saline as I think she is quite dehydrated. Patient is comfortable now. Discussed with patient and family who agree with plan. Monitor patient. 1100: Repeat troponin is also negative. She is still chest pain-free. Repeat fluid has helped more and her heart rate is now 80. I think she is dehydrated and went back to work too early after influenza infection that she had last week. We will give her today and tomorrow off and she will continue to rest and recuperate at home. Discharged home with return precautions. Patient verbalized understanding of instructions and agreement with plan. Initial ECG Impression Date: Jun 06, 2022 Initial ECG Impression Time: 08:00 Initial ECG Rate: 112 Initial ECG Rhythm: S.Tach Comment Sinus tachycardia with normal axis. No evidence of ST elevation OK. Similar to previous compared to 02/24/2016. Interpreted by me. Diagnostic Imaging Diagonstic Imaging: Xray Plain Films/CT/US/NM/MRI: chest Comments [facility]. [place], [place] NAME: SUSI AMADOR [facility] REC#: [id number] PT STATUS: REG ER : 1975 PHYSICIAN: ANDREW PINTO MD ADMIT DATE: 06/06/22/ER Draft Date of Exam:06/06/22 CHEST 1 VIEW, AP/PA ONLY EXAMINATION: Chest radiograph, portable AP view. DATE: 06/06/2022 8:18 AM INDICATION: 47-year-old female, chest pain. COMPARISON: May 28, 2022. FINDINGS: Heart size and mediastinal contours are unchanged. There is no identified pneumothorax. There is no large pleural effusion. There is no identified focal airspace consolidation. IMPRESSION: 1. No identified acute cardiopulmonary abnormality. Dictated on workstation # [id number] Dict: 06/06/22 0837 Trans: 06/06/22 0856 [facility] [id number] Interpreted by: ADIEL EID MD Electronically signed by: Departure Impression Primary Impression: Chest pain Qualified Codes: R07.9 - Chest pain, unspecified Additional Impressions: Tachycardia Dehydration Disposition: 01 HOME, SELF-CARE Condition: Improved Departure-Patient Inst. Decision time for Depature: 11:02 Referrals: DANNY WALDRON DO (PCP/Family) Primary Care Physician Patient Instructions: Chest Pain (DC), Sinus Tachycardia (DC), Dehydration, Adult ED Add. Discharge Instructions: Drink plenty fluids and get plenty of rest. You may take Tylenol/acetaminophen 1000 mg every 8 hours as needed for fever or pain. You may take ibuprofen 600 mg every 8 hours as needed for fever or pain. You may use Afrin nasal spray or the generic, 12 hour relief, 2 sprays to each nostril twice daily for 3 days only and then stop. Do not use more than 3 days. Follow-up with your Dr. in a few days for recheck. Return for worse pain, fever, vomiting, weakness, breathing problems or other concerns as needed. Work/School Note: Work Release Form Date Seen in the Emergency Department: Jun 06, 2022 Return to Work: Jun 08, 2022 Restrictions: No Restrictions ANDREW PINTO MD Jun 06, 2022 08:19
[2022-06-06 08:32] LABS: INR 0.8 (0.8-1.4); PROTHROMBIN TIME PATIENT 11.9 SEC (12.2-14.7)
[2022-06-06 08:36] LABS: ALBUMIN 4.4 GM/DL (3.2-4.5); CHLORIDE 105 MMOL/L (98-107); SODIUM 141 MMOL/L (135-145)
[2022-06-06 08:38] LABS: GLUCOSE 114 MG/DL (70-105)
[2022-06-06 08:39] LABS: TOTAL PROTEIN 7.6 GM/DL (6.4-8.2)
[2022-06-06 08:40] LABS: BILIRUBIN,TOTAL 0.9 MG/DL (0.1-1.0); CARBON DIOXIDE 20 MMOL/L (21-32)
[2022-06-06 08:42] LABS: ALKALINE PHOSPHATASE 95 U/L (40-136); CREATININE SERUM 1.14 MG/DL (0.60-1.30); GFR ESTIMATED 60
[2022-06-06 08:43] LABS: BUN/CREATININE RATIO 6
[2022-06-06 08:45] LABS: ALANINE AMINOTRANSFERASE 74 U/L (0-55)
[2022-06-06 08:46] LABS: MAGNESIUM 1.8 MG/DL (1.6-2.4)
--- NOTE | 2022-06-06 08:56 | Diagnostic Imaging Report ---
EXAMINATION: Chest radiograph, portable AP view. DATE: 06/06/2022 8:18 AM INDICATION: 47-year-old female, chest pain. COMPARISON: May 28, 2022. FINDINGS: Heart size and mediastinal contours are unchanged. There is no identified pneumothorax. There is no large pleural effusion. There is no identified focal airspace consolidation. IMPRESSION: 1. No identified acute cardiopulmonary abnormality. Dictated by: Dictated on workstation # [id number]
[2022-06-06] MEDS ORDERED: NS IV 1000 ML 1,000 ML IV STA (09:54)
[2022-06-06 11:34] VITALS: BP 117/80
== END 2022-06-06 11:34 | disposition home or self-care (01) ==
LOC: EDUNIT# 07:54 → ER 07:55
DX: R07.9 Chest pain, unspecified (principal); E86.0 Dehydration; R00.0 Tachycardia, unspecified; Z82.49 Family history of ischemic heart disease and other diseases of the circulatory system
CPT/HCPCS: 36415; 71045; 80053; 83735; 83874; 84443; 84484; 85025; 85379; 85610; 85730; 93041

== ENCOUNTER 2022-08-08 11:07 | Emergency (ER) | payer OTHER ==
[~2022-08-08] VITALS: Ht 170.1 cm; Wt 78.0 kg
[2022-08-08 11:26] LABS: BILIRUBIN,URINE NEGATIVE (NEGATIVE); CLARITY,URINE CLEAR; COLOR,URINE YELLOW; GLUCOSE, URINE (UA) NEGATIVE (NEGATIVE); KETONES,URINE NEGATIVE (NEGATIVE); LEUKOCYTE ESTERASE ,URINE NEGATIVE (NEGATIVE); NITRITE,URINE NEGATIVE (NEGATIVE); PROTEIN,URINE NEGATIVE (NEGATIVE)
[2022-08-08 11:39] LABS: BACTERIA,URINE TRACE /HPF; RBC,URINE RARE /HPF; WBC,URINE RARE /HPF
--- NOTE | 2022-08-08 11:40 | ED GU-Female ---
General Chief Complaint: - Reproductive Stated Complaint: KIDNEY STONE Source: patient Exam Limitations: no limitations (NATASHA ANDERSON APRN) History of Present Illness Date Seen by Provider: Aug 08, 2022 Time Seen by Provider: 11:25 Initial Comments 47-year-old female presents to the ED with complaints of pain of right lower quadrant abdominal pain. States she has a history of kidney stones. She reports the pain started on Friday in the right upper quadrant she was seen on Friday for the pain and had a KUB x-ray which showed 3 stones. She was also diagnosed with a UTI at that time and started on antibiotic, Flomax, and pain medicine. Reports the pain has moved from the right upper quadrant to the right lower quadrant. She reports dribbling with urination, urgency. Denies dysuria. Reports lower abdominal pressure with urination. Denies fever, chest pain, shortness of air, diarrhea. Last bowel movement was yesterday and was normal. She reports some nausea, but no vomiting. Past medical history includes hypertension, diabetes, depression. She has had a total hysterectomy, cholecystectomy, and lithotripsy for her last kidney stone which she thinks was about 1.5 years ago. (NATASHA ANDERSON APRN) Allergies and Home Medications Allergies Coded Allergies: No Known Drug Allergies (Unverified , 11/27/13) Patient Home Medication List Home Medication List Reviewed: Yes (NATASHA ANDERSON APRN) Amoxicillin/Potassium Clav (Augmentin 500-125 Tablet) 1 Each Tablet, 1 EACH PO BID, (Reported) Entered as Reported by: JAX NEWSOME on 06/05/21 07 Cyclobenzaprine HCl (Cyclobenzaprine HCl) 10 Mg Tablet, 10 MG PO TID Prescribed by: ROBERTA MULLINS MD on 01/14/19905 Escitalopram Oxalate (Escitalopram Oxalate) 10 Mg Tablet, 20 MG PO DAILY, (Repo rted) Entered as Reported by: JAX NEWSOME on 06/05/21 0732 Hydrocodone/Acetaminophen (Vicodin 5-300 mg Tablet) 1 Each Tablet, 1-2 EACH PO Q6H PRN for PAIN-MODERATE Prescribed by: ROBERTA MULLINS MD on 01/14/19905 Ketorolac Tromethamine (Ketorolac Tromethamine) 10 Mg Tablet, 10 MG PO Q6H Prescribed by: JAX NEWSMOE on 06/05/21915 Metformin HCl (Metformin HCl) 500 Mg Tablet, 500 MG PO DAILY, (Reported) Entered as Reported by: JAX NEWSOME on 06/05/21731 Nitrofurantoin Monohyd/M-Cryst (Macrobid 100 mg Capsule) 100 Mg Capsule, 1 TAB PO BID WITH MEALS Prescribed by: JAX NEWSOME on 06/05/21915 Tamsulosin HCl (Flomax) 0.4 Mg Cap, 0.4 MG PO DAILY, (Reported) Entered as Reported by: JAX NEWSOME on 06/05/21731 Tamsulosin HCl (Flomax) 0.4 Mg Cap, 0.4 MG PO DAILY Prescribed by: JAX NEWSOME on 06/05/21915 [Lipsinol] , 10 MG PO DAILY, (Reported) Entered as Reported by: JAX NEWSOME on 06/05/21731 Review of Systems Review of Systems Constitutional: see HPI (NATASHA ANDERSON APRN) Past Hzoftrw-Xbosxm-Lhiwmz Hx Immunizations Up To Date First/Initial COVID19 Vaccinat: no Second COVID19 Vaccination Tae: no Third COVID19 Vaccination Date: no (NATASHA ANDERSON APRN) Past Medical History Surgeries: Yes (LAP ANANTH) Section, Gallbladder, Hysterectomy, Orthopedic Respiratory: Yes Asthma Currently Using CPAP: No Currently Using BIPAP: No Cardiac: Yes (MITRAL VALVE PROLAPSE) Hypertension 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, 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 Gastrointestinal: Yes Chronic Constipation, Ulcer, Gall Bladder Disease Musculoskeletal: Yes (FX KNEE) Fractures Endocrine: Yes ("BORDERLINE DIABETIC") HEENT: No Cancer: No Psychosocial: Yes Depression Integumentary: No Blood Disorders: No (NATASHA ANDERSON APRN) Family Medical History Heart Disease (NATASHA ANDERSON APRN) Physical Exam Vital Signs Vital Signs - First Documented 08/08/22 11:30 Temp 36.4 Pulse 81 Resp 18 B/P (MAP) 116/75 (89) Pulse Ox 99 O2 Delivery Room Air (BETTIE STUART MD) Vital Signs Capillary Refill : (NATASHA ANDERSON APRN) Height, Weight, BMI Height: 5'9.00" Weight: 200lbs. oz. 90.216810vb; 28.00 BMI Method:Estimated General Appearance: WD/WN, no apparent distress Neck: supple, normal inspection Cardiovascular: regular rate, rhythm, no edema, no gallop, no JVD, no murmur Respiratory: lungs clear, normal breath sounds, no respiratory distress, no accessory muscle use Gastrointestinal: normal bowel sounds, soft, tenderness (All 4 quadrants) Back: CVA tenderness (R), CVA tenderness (L) Extremities: normal range of motion, normal inspection Neurologic/Psychiatric: alert, normal mood/affect, oriented x 3 Skin: normal color, warm/dry (NATASHA ANDERSON APRN) Progress/Results/Core Measures Suspected Sepsis SIRS Temperature: Pulse: Respiratory Rate: Blood Pressure / Mean: (NATASHA ANDERSON APRN) Results/Orders Vital Signs/I&O Capillary Refill : (NATASHA ANDERSON APRN) Progress Note #1: Time: 11:44 Progress Note Patient seen and evaluated, resting comfortably bed, no acute distress. Based on exam and symptoms, concern for nephrolithiasis, appendicitis, UTI, pyelonephritis. Work-up initiated including CBC, CMP, lipase, amylase, UA, CT abdomen pelvis with contrast. IV fluids and Toradol ordered. Progress Note #2: Time: 12:56 Progress Note Labs and CT reviewed. CBC grossly normal, WBC 7.0, Hbg 15.1, RBC elevated 5.41. CMP grossly normal, chloride slightly elevated 108. Amylase and lipase normal. UA shows 1+ RBC, negative for infection. CT shows approximately 1-2 mm right UVJ calculus with very mild right-sided hydroureteronephrosis, and a small fat-containing umbilical hernia. Patient re-evaluated. No tenderness or pain at site of umbilical hernia. Results provided to patient. Will discharge at this time, patient agrees. Patient instructed to call [facility] or [facility] for follow up, strain urine, and continue her antibiotic, flomax, and pain medication. Discharge instructions and return precautions provided. (NATASHA ANDERSON APRN) Diagnostic Imaging Diagonstic Imaging: CT Plain Films/CT/US/NM/MRI: abdomen, pelvis Comments [facility]. [place], [place] NAME: SUSI AMADOR [facility] REC#: [id number] PT STATUS: REG ER : 1975 PHYSICIAN: NATASHA ANDERSON APRN ADMIT DATE: 08/08/22/ER Draft Date of Exam:08/08/22 CT ABDOMEN/PELVIS W PROCEDURE: CT abdomen and pelvis with contrast. TECHNIQUE: Multiple contiguous axial images were obtained through the abdomen and pelvis after administration of intravenous contrast. Auto Exposure Controls were utilized during the CT exam to meet ALARA standards for radiation dose reduction. All CT scans use one or more of the following dose optimizing techniques: Automated exposure control, MA and/or KvP adjustment based on patient size and exam type or iterative reconstruction. INDICATION: Right lower abdominal pain. COMPARISON: Correlation is made with prior CT from 10/04/2021. FINDINGS: The lung bases are clear. Tiny low-attenuation lesion in the left lobe of the liver is stable and most likely a cyst. No other liver lesions are seen. Gallbladder is surgically absent. There is no biliary ductal dilatation. Pancreas and spleen are unremarkable. No adrenal mass is detected. Kidneys contain cortical low-attenuation lesions, too small to characterize but most likely small cysts. No definite renal calculi are seen. There is a tiny calcific density in the region of the UVJ on the right side, suspicious for a UVJ calculus. The right ureter and right renal collecting system are slightly prominent as well. The left ureter is unremarkable. Aorta is nonaneurysmal. Bowel loops are normal in caliber. There is a small fat-containing umbilical hernia. There is no ascites. Uterus is surgically absent. IMPRESSION: 1. Findings suggestive of approximately 1-2 mm right UVJ calculus with very mild right-sided hydroureteronephrosis. 2. Small fat-containing umbilical hernia. Dictated on workstation # [id number] Dict: 08/08/22 1223 Trans: 08/08/22 1229 [id number] Interpreted by: YOVANA TEMPLETON MD Electronically signed by: (NATASHA ANDERSON APRN) Departure Impression Primary Impression: Right ureteral stone Disposition: 01 HOME, SELF-CARE Condition: Stable Departure-Patient Inst. Decision time for Depature: 12:58 (NATASHA ANDERSON APRN) Referrals: COSENS,DANNY L DO (PCP/Family) Primary Care Physician Patient Instructions: Kidney Stone, Adult ED Add. Discharge Instructions: Call either [facility] or [facility] for follow-up. Your stone is small, you will likely be able to pass it without intervention. Use the urine strainer to strain your urine to see if you passed a kidney stone. You may collect the kidney stone and take it to a urologist for testing as well. Continue your antibiotic, Flomax, and pain medicine. Return for severe pain, recurrent vomiting, fever, or any other new, concerning, or worsening symptoms. [facility] [phone] [facility] All discharge instructions reviewed with patient and/or family. Voiced understanding. ATTENDING PHYSICIAN NOTE: I was physically present as attending physician in the emergency department during the care of this patient, but I was not directly involved in the decision making or delivery of care for this patient. (BETTIE STUART MD) NATASHA ANDERSON APRN Aug 08, 2022 11:40 BETTIE STUART MD Aug 12, 2022 11:52
[2022-08-08 11:43] LABS: ALBUMIN 3.9 GM/DL (3.2-4.5); POTASSIUM 3.9 MMOL/L (3.6-5.0)
[2022-08-08 11:43] LABS: AMORPHOUS SEDIMENT,UR FEW AMOR URATES /LPF
[2022-08-08 11:44] LABS: CALCIUM 8.7 MG/DL (8.5-10.1)
[2022-08-08 11:45] LABS: TOTAL PROTEIN 6.4 GM/DL (6.4-8.2)
[2022-08-08] MEDS ORDERED: KETOROLAC 30 MG/ML VIAL IVP ONE (11:45)
[2022-08-08] MEDS ORDERED: NS IV 1000 ML 1,000 ML IV SCH (11:45)
[2022-08-08 11:47] LABS: BASOPHILS % (AUTO) 0 % (0-10); BILIRUBIN,TOTAL 0.4 MG/DL (0.1-1.0); EOSINOPHILS # (AUTO) 0.1 10^3/uL (0.0-0.3); EOSINOPHILS % (AUTO) 1 % (0-10); HEMATOCRIT 43 % (35-52); HEMOGLOBIN 15.1 g/dL (11.5-16.0); LYMPHOCYTES # (AUTO) 2.4 10^3/uL (1.0-4.0); LYMPHOCYTES % (AUTO) 34 % (12-44); MEAN CORPUSCULAR HEMOGLOBIN 28 pg (25-34); MEAN CORPUSCULAR HGB CONC 35 g/dL (32-36); MEAN CORPUSCULAR VOLUME 80 fL (80-99); MEAN PLATELET VOLUME 9.7 fL (9.0-12.2); MONOCYTES # (AUTO) 0.5 10^3/uL (0.0-1.0); MONOCYTES % (AUTO) 6 % (0-12); NEUTROPHILS # (AUTO) 4.1 10^3/uL (1.8-7.8); NEUTROPHILS % (AUTO) 58 % (42-75); PLATELET COUNT 339 10^3/uL (130-400)
[2022-08-08 11:49] LABS: CREATININE SERUM 0.86 MG/DL (0.60-1.30)
[2022-08-08] MEDS ORDERED: NS 100 ML (IVPB) BAG IV ONE (12:15)
[2022-08-08] MEDS ORDERED: HOLD METFORMIN - RECEIVED CONTRAST 20 ML VIAL IV SCH (12:15)
[2022-08-08] MEDS ORDERED: IOHEXOL 350 MG/ML 100 ML (OMNIPAQUE 350) VIAL IV ONE (12:15)
--- NOTE | 2022-08-08 12:29 | Diagnostic Imaging Report ---
PROCEDURE: CT abdomen and pelvis with contrast. TECHNIQUE: Multiple contiguous axial images were obtained through the abdomen and pelvis after administration of intravenous contrast. Auto Exposure Controls were utilized during the CT exam to meet ALARA standards for radiation dose reduction. All CT scans use one or more of the following dose optimizing techniques: Automated exposure control, MA and/or KvP adjustment based on patient size and exam type or iterative reconstruction. INDICATION: Right lower abdominal pain. COMPARISON: Correlation is made with prior CT from 10/04/2021. FINDINGS: The lung bases are clear. Tiny low-attenuation lesion in the left lobe of the liver is stable and most likely a cyst. No other liver lesions are seen. Gallbladder is surgically absent. There is no biliary ductal dilatation. Pancreas and spleen are unremarkable. No adrenal mass is detected. Kidneys contain cortical low-attenuation lesions, too small to characterize but most likely small cysts. No definite renal calculi are seen. There is a tiny calcific density in the region of the UVJ on the right side, suspicious for a UVJ calculus. The right ureter and right renal collecting system are slightly prominent as well. The left ureter is unremarkable. Aorta is nonaneurysmal. Bowel loops are normal in caliber. There is a small fat-containing umbilical hernia. There is no ascites. Uterus is surgically absent. IMPRESSION: 1. Findings suggestive of approximately 1-2 mm right UVJ calculus with very mild right-sided hydroureteronephrosis. 2. Small fat-containing umbilical hernia. Dictated by: Dictated on workstation # [id number]
[2022-08-08 13:06] VITALS: BP 109/75
== END 2022-08-08 13:06 | disposition home or self-care (01) ==
LOC: EDUNIT# 11:07 → ER 11:09
DX: N13.2 Hydronephrosis with renal and ureteral calculous obstruction (principal); K42.9 Umbilical hernia without obstruction or gangrene; N39.0 Urinary tract infection, site not specified; Z90.49 Acquired absence of other specified parts of digestive tract; Z28.310 Unvaccinated for COVID-19
CPT/HCPCS: 36415; 74177; 80053; 81000; 82150; 83690; 85025

== ENCOUNTER → 2022-10-21 | Outpatient (CLI) | payer OTHER ==
--- NOTE | 2022-10-21 15:50 | Diagnostic Imaging Report ---
Indication: Routine screening. Comparison is made with prior mammograms 01/01/2019 and 08/17/2015. 2-D and 3-D bilateral screening mammography was performed with CAD. Scattered fibroglandular densities are identified bilaterally. There is a density in the lateral aspect of the right breast mid depth best seen on the CC view. Additional views of this area are recommended. No definite correlate on the MLO view is identified. The remainder of both breasts appears stable. No suspicious microcalcifications are seen. Axillae are unremarkable. IMPRESSION: BI-RADS 0 Right breast density. Additional views are recommended for further evaluation. ACR BI-RADS Category 0: Incomplete. (Needs additional imaging evaluation). Result letter will be mailed to the patient. Note: At least 10% of breast cancer is not imaged by mammography. Dictated by: Dictated on workstation # [id number]
== END ==
LOC: RAD 15:13
PROVIDERS: ATTEND Nurse Practitioner Family
DX: Z12.31 Encounter for screening mammogram for malignant neoplasm of breast (principal); N20.2 Calculus of kidney with calculus of ureter; S86.812A Strain of other muscle(s) and tendon(s) at lower leg level, left leg, initial encounter; N64.4 Mastodynia; I10 Essential (primary) hypertension; F33.1 Major depressive disorder, recurrent, moderate; E66.09 Other obesity due to excess calories; E78.49 Other hyperlipidemia; E11.9 Type 2 diabetes mellitus without complications
CPT/HCPCS: 77063; 77067

== ENCOUNTER → 2022-11-06 | Outpatient (CLI) | payer OTHER ==
--- NOTE | 2022-11-06 20:00 | Diagnostic Imaging Report ---
INDICATION: Right breast density. EXAMINATION: Patient presents for additional views. Unilateral right 2D and 3D diagnostic mammography was performed. This included spot compression CC, rolled CC as well as conventional 90 degree lateral views. COMPARISON: Correlation is made with prior screening mammogram from 10/21/2022. FINDINGS: The additional views fail to demonstrate a discrete mass. The area of density noted in the central right breast on the screening view most likely represents superimposed tissue. No underlying mass or malignant-appearing microcalcifications are seen. IMPRESSION: Additional views fail to demonstrate a discrete mass. The patient may return to routine annual screening mammography. ACR BI-RADS Category 1: Negative. Result letter will be mailed to the patient. Note: At least 10% of breast cancer is not imaged by mammography. Dictated by: Dictated on workstation # [id number]
== END ==
LOC: RAD 13:17
PROVIDERS: ATTEND Registered Nurse Critical Care Medicine
DX: Z12.31 Encounter for screening mammogram for malignant neoplasm of breast (principal); N64.4 Mastodynia; N20.2 Calculus of kidney with calculus of ureter; I10 Essential (primary) hypertension; F33.1 Major depressive disorder, recurrent, moderate; F32.5 Major depressive disorder, single episode, in full remission; E66.09 Other obesity due to excess calories; S86.812A Strain of other muscle(s) and tendon(s) at lower leg level, left leg, initial encounter; X58.XXXA Exposure to other specified factors, initial encounter
CPT/HCPCS: 77065; G0279

== ENCOUNTER 2022-11-29 15:59 | Outpatient (RCR) | payer OTHER ==
[2022-11-29 16:23] LABS: POTASSIUM 3.5 MMOL/L (3.6-5.0)
[2022-11-29 16:24] LABS: CALCIUM 8.8 MG/DL (8.5-10.1)
[2022-11-29 16:28] LABS: PHOSPHORUS 3.3 MG/DL (2.3-4.7)
[2022-11-29 16:29] LABS: CREATININE SERUM 0.86 MG/DL (0.60-1.30)
== END 2022-12-06 | disposition home or self-care (01) ==
LOC: LAB 15:59
PROVIDERS: ATTEND Nurse Practitioner Family
DX: N20.0 Calculus of kidney (principal)
CPT/HCPCS: 36415; 80048; 82340; 82507; 83735; 83945; 83970; 84075; 84100; 84105

== ENCOUNTER → 2023-02-05 | Outpatient (CLI) | payer OTHER ==
--- NOTE | 2023-02-05 17:43 | Diagnostic Imaging Report ---
INDICATION: Right breast pain and burning. Sonographic interrogation of the area of pain and burning of the right breast was performed. No sonographic abnormality is identified. No solid or cystic mass is detected. IMPRESSION: No sonographic abnormality is detected. ACR BI-RADS Category 1: Negative. Result letter will be mailed to the patient. Note: At least 10% of breast cancer is not imaged by mammography. BI-RADS Category 1 Dictated by: Dictated on workstation # [id number]
== END ==
LOC: RAD 13:38
PROVIDERS: ATTEND Nurse Practitioner
DX: N64.4 Mastodynia (principal)